=== PATIENT | female | born 1935 | race Caucasian/White ===

== ENCOUNTER → 2016-06-22 | Outpatient (CLI) | payer MEDICARE, OTHER ==
--- NOTE | 2016-06-22 10:57 | MM ---
Reason for exam: history of breast cancer, conservation therapy. Last mammogram was performed 1 year ago. History: Patient is postmenopausal, has history of breast cancer at age 65, and has history of colon cancer at age 51. Malignant lumpectomy, April 01, 2001. Malignant stereotactic core biopsy of the left breast, March 15, 2001. Malignant excisional biopsy, March 15, 2001. Core biopsy of the left breast. Radiation therapy of the left breast. Physical Findings: Nurse Summary: 2cm nodule in the left breast at 4 o'clock (nurse mm). MG 3D Diag Mammo W/Cad JASON Bilateral CC and MLO view(s) were taken. XCCL view(s) were taken of the left breast. Prior study comparison: June 16, 2015, bilateral MG 3d diag mammo w/cad JASON. May 14, 2014, bilateral MG diagnostic mammo w CAD JASON. The breast tissue is heterogeneously dense. This may lower the sensitivity of mammography. Benign calcifications. Stable post lumpectomy distortion upper outer left breast. No significant new findings when compared with previous films. These results were verbally communicated with the patient and result sheet given to the patient on 06/22/16. ASSESSMENT: Benign, BI-RAD 2 RECOMMENDATION: Follow-up diagnostic mammogram of both breasts in 1 year. Manage patient on a clinical basis.
== END | disposition home or self-care (01) ==
LOC: RADMAMWWP 09:24
PROVIDERS: ATTEND Internal Medicine
DX: Z08 Encounter for follow-up examination after completed treatment for malignant neoplasm (principal); Z85.3 Personal history of malignant neoplasm of breast
CPT/HCPCS: G0204; G0279

== ENCOUNTER → 2017-01-03 | Outpatient (CLI) | payer MEDICARE ==
--- NOTE | 2017-01-03 10:39 | MR ---
EXAMINATION TYPE: MR angio head wo con DATE OF EXAM: 01/03/2017 COMPARISON: 04/02/2012 HISTORY: cerebral aneurysm TECHNIQUE: Utilizing 3-D [id number] intracranial MRA of the [place] of [place] was performed. FINDINGS: The vertebrobasilar and carotid systems are patent. There is 2 mm aneurysm extending off the distal c arotid siphon on the right. Left vertebral artery is dominant. IMPRESSION- 1. 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
== END | disposition home or self-care (01) ==
LOC: RADMRIMAIN 09:53
PROVIDERS: ATTEND Internal Medicine
DX: I67.1 Cerebral aneurysm, nonruptured (principal)
CPT/HCPCS: 70544

== ENCOUNTER → 2017-06-25 | Outpatient (CLI) | payer MEDICARE ==
--- NOTE | 2017-06-25 11:27 | MM ---
Reason for exam: additional evaluation requested from prior study. Last mammogram was performed 1 year ago. History: Patient is postmenopausal, has history of breast cancer at age 65, and has history of colon cancer at age 51. Malignant lumpectomy, April 01, 2001. Malignant stereotactic core biopsy of the left breast, March 15, 2001. Malignant excisional biopsy, March 15, 2001. Core biopsy of the left breast. Radiation therapy of the left breast. Physical Findings: Nurse Summary: 1cm nodule in the left breast at 3 o'clock (nurse dw). MG 3D Diag Mammo W/Cad JASON Bilateral CC and MLO view(s) were taken. Prior study comparison: June 22, 2016, bilateral MG 3d diag mammo w/cad JASON. May 14, 2014, bilateral MG diagnostic mammo w CAD JASON. The breast tissue is heterogeneously dense. This may lower the sensitivity of mammography. BB at palpable at lumpectomy site. No significant new findings when compared with previous films. These results were verbally communicated with the patient and result sheet given to the patient on 06/25/17. ASSESSMENT: Benign, BI-RAD 2 RECOMMENDATION: Routine screening mammogram of both breasts in 1 year.
== END | disposition home or self-care (01) ==
LOC: RADMAMWWP 09:59
PROVIDERS: ATTEND Internal Medicine
DX: Z08 Encounter for follow-up examination after completed treatment for malignant neoplasm (principal); Z85.3 Personal history of malignant neoplasm of breast
CPT/HCPCS: 77066; G0279

== ENCOUNTER 2018-07-29 17:44 | Observation (INO) | payer MEDICARE ==
[2018-07-29] MEDS ORDERED: SODIUM CHLORIDE 0.9% 1,000 ML IV STA (18:15)
--- NOTE | 2018-07-29 18:48 | ED ---
Dizziness HPI - General Chief Complaint: Dizziness Stated Complaint: elevated BP Time Seen by Provider: 07/29/18 18:06 Source: patient, family, RN notes reviewed Mode of arrival: ambulatory Limitations: no limitations - History of Present Illness Initial Comments: This 82-year-old female who states she developed 2 episodes of dizzy spells while working on a puzzle with her . She states it last about 1-1/2 minutes each she states she felt kind of woozy and had some visual disturbance no focal weakness which did have some numbness to her fingers. She also notes that her heart rate was elevated. At this time she is asymptomatic denies any fevers chills nausea vomiting sweats. Per her daughter she did have a spike in her blood pressure at that time was 197/83 she appeared to be flushed. Currently she is back to normal other than she states she just feels a little bit off but she can't really describe it. MD Complaint: dizziness - Related Data Home Medications Medication Instructions Recorded Confirmed Allopurinol [Zyloprim] 300 mg PO HS 07/29/18 07/29/18 Enalapril [Vasotec] 5 mg PO HS 07/29/18 07/29/18 Levothyroxine Sodium [Synthroid] 75 mcg PO HS 07/29/18 07/29/18 Spironolactone-Hctz 25-25Mg 1 tab PO HS 07/29/18 07/29/18 [Aldactazide 25-25Mg] metFORMIN HCL [Glucophage] 500 mg PO BID 07/29/18 07/29/18 Allergies Allergy/AdvReac Type Severity Reaction Status Date / Time codeine AdvReac Nausea & Verified 07/29/18 18:56 Vomiting Review of Systems ROS Statement: Those systems with pertinent positive or pertinent negative responses have been documented in the HPI. ROS Other: All systems not noted in ROS Statement are negative. Past Medical History Past Medical History: Diabetes Mellitus, Hypertension, Thyroid Disorder Additional Past Medical History / Comment(s): gout History of Any Multi-Drug Resistant Organisms: None Reported Past Surgical History: Appendectomy, Bowel Resection, Breast Surgery Past Psychological History: No Psychological Hx Reported Smoking Status: Former smoker Past Alcohol Use History: None Reported Past Drug Use History: None Reported General Exam - General Exam Comments Initial Comments: This is a well-developed well-nourished awake alert oriented x 3 female Limitations: no limitations General appearance: alert, in no apparent distress Head exam: Present: atraumatic, normocephalic, normal inspection Eye exam: Present: normal appearance, PERRL, EOMI. Absent: scleral icterus, conjunctival injection, periorbital swelling ENT exam: Present: normal exam, mucous membranes moist Neck exam: Present: normal inspection, full ROM, other (No stridor JVD or bruits ). Absent: tenderness, meningismus, lymphadenopathy Respiratory exam: Present: normal lung sounds bilaterally. Absent: respiratory distress, wheezes, rales, rhonchi, stridor Cardiovascular Exam: Present: regular rate, normal rhythm, normal heart sounds. Absent: systolic murmur, diastolic murmur, rubs, gallop, clicks GI/Abdominal exam: Present: soft, normal bowel sounds. Absent: distended, tenderness, guarding, rebound, rigid, bruit, pulsatile mass Extremities exam: Present: normal inspection, full ROM, normal capillary refill. Absent: tenderness, pedal edema, joint swelling, calf tenderness Back exam: Present: normal inspection Neurological exam: Present: alert, oriented X3, CN II-XII intact Psychiatric exam: Present: normal affect, normal mood Skin exam: Present: warm, dry, intact, normal color. Absent: rash Course Vital Signs 07/29/18 17:46 Temperature 98.1 F Pulse Rate 82 Respiratory 18 Rate Blood Pressure 148/84 O2 Sat by Pulse 98 Oximetry - Reevaluation(s) Reevaluation #1: 07/29/18 22:15 Cardiac monitoring: Cardiac monitoring was indicated due to the patient's presentation for dizziness to rule out dysrhythmia none was noted. EKG showed a normal sinus rhythm a 72 upon my initial encounter. No dysrhythmia no acute ST-T wave changes noted. EKG Findings - EKG Results: EKG: interpreted by ERMGiuliano, sinus rhythm (Sinus rhythm of 71. Interval 188 QRS duration 94 QT since QTC 460/452 moderate voltage criteria for LVH no acute ST- T wave changes some artifact was present) Medical Decision Making - Medical Decision Making I did have a long discussion with patient and family regarding the findings. The patient's episode with tachycardia is suspicious for dysrhythmia. I did discuss the need for admission with the patient family who do agree. I did discuss the case with Dr. Medel. Patient will be admitted with cardiology consultation and echocardiogram and duplex scan will be ordered. Patient is currently asymptomatic. - Lab Data Result diagrams: 07/29/18 18:36 07/29/18 18:36 Lab Results 07/29/18 07/29/18 07/29/18 Range/Units 18:36 18:36 18:36 WBC 8.9 (3.8-10.6) k/uL RBC 4.63 (3.80-5.40) m/uL Hgb 13.4 (11.4-16.0) gm/dL Hct 41.7 (34.0-46.0) % MCV 90.2 (80.0-100.0) fL MCH 28.9 (25.0-35.0) pg MCHC 32.0 (31.0-37.0) g/dL RDW 13.9 (11.5-15.5) % Plt Count 231 (150-450) k/uL Neutrophils % 73 % Lymphocytes % 15 % Monocytes % 5 % Eosinophils % 5 % Basophils % 1 % Neutrophils # 6.5 (1.3-7.7) k/uL Lymphocytes # 1.4 (1.0-4.8) k/uL Monocytes # 0.4 (0-1.0) k/uL Eosinophils # 0.4 (0-0.7) k/uL Basophils # 0.1 (0-0.2) k/uL D-Dimer (<0.60) mg/L FEU Sodium 137 (137-145) mmol/L Potassium 5.2 H (3.5-5.1) mmol/L Chloride 101 (98-107) mmol/L Carbon Dioxide 28 (22-30) mmol/L Anion Gap 8 mmol/L BUN 26 H (7-17) mg/dL Creatinine 0.91 (0.52-1.04) mg/dL Est GFR (CKD-EPI)AfAm 69 (>60 ml/min/1.73 sqM) Est GFR (CKD-EPI)NonAf 60 (>60 ml/min/1.73 sqM) Glucose 99 (74-99) mg/dL Calcium 9.6 (8.4-10.2) mg/dL Magnesium 1.9 (1.6-2.3) mg/dL Total Bilirubin 0.7 (0.2-1.3) mg/dL AST 25 (14-36) U/L ALT 31 (9-52) U/L Alkaline Phosphatase 59 (38-126) U/L Total Creatine Kinase 74 (30-135) U/L CK-MB (CK-2) 0.7 (0.0-2.4) ng/mL CK-MB (CK-2) Rel Index 0.9 Troponin I <0.012 (0.000-0.034) ng/mL Total Protein 6.5 (6.3-8.2) g/dL Albumin 3.9 (3.5-5.0) g/dL Urine Color Urine Appearance (Clear) Urine pH (5.0-8.0) Ur Specific [place] (1.001-1.035) Urine Protein (Negative) Urine Glucose (UA) (Negative) Urine Ketones (Negative) Urine Blood (Negative) Urine Nitrite (Negative) Urine Bilirubin (Negative) Urine Urobilinogen (<2.0) mg/dL Ur Leukocyte Esterase (Negative) Urine WBC (0-5) /hpf Ur Squamous Epith Cells (0-4) /hpf 07/29/18 07/29/18 Range/Units 18:36 19:32 WBC (3.8-10.6) k/uL RBC (3.80-5.40) m/uL Hgb (11.4-16.0) gm/dL Hct (34.0-46.0) % MCV (80.0-100.0) fL MCH (25.0-35.0) pg MCHC (31.0-37.0) g/dL RDW (11.5-15.5) % Plt Count (150-450) k/uL Neutrophils % % Lymphocytes % % Monocytes % % Eosinophils % % Basophils % % Neutrophils # (1.3-7.7) k/uL Lymphocytes # (1.0-4.8) k/uL Monocytes # (0-1.0) k/uL Eosinophils # (0-0.7) k/uL Basophils # (0-0.2) k/uL D-Dimer 0.49 (<0.60) mg/L FEU Sodium (137-145) mmol/L Potassium (3.5-5.1) mmol/L Chloride (98-107) mmol/L Carbon Dioxide (22-30) mmol/L Anion Gap mmol/L BUN (7-17) mg/dL Creatinine (0.52-1.04) mg/dL Est GFR (CKD-EPI)AfAm (>60 ml/min/1.73 sqM) Est GFR (CKD-EPI)NonAf (>60 ml/min/1.73 sqM) Glucose (74-99) mg/dL Calcium (8.4-10.2) mg/dL Magnesium (1.6-2.3) mg/dL Total Bilirubin (0.2-1.3) mg/dL AST (14-36) U/L ALT (9-52) U/L Alkaline Phosphatase (38-126) U/L Total Creatine Kinase (30-135) U/L CK-MB (CK-2) (0.0-2.4) ng/mL CK-MB (CK-2) Rel Index Troponin I (0.000-0.034) ng/mL Total Protein (6.3-8.2) g/dL Albumin (3.5-5.0) g/dL Urine Color Colorless Urine Appearance Clear (Clear) Urine pH 5.0 (5.0-8.0) Ur Specific [place] 1.003 (1.001-1.035) Urine Protein Negative (Negative) Urine Glucose (UA) Negative (Negative) Urine Ketones Trace H (Negative) Urine Blood Negative (Negative) Urine Nitrite Negative (Negative) Urine Bilirubin Negative (Negative) Urine Urobilinogen <2.0 (<2.0) mg/dL Ur Leukocyte Esterase Trace H (Negative) Urine WBC 1 (0-5) /hpf Ur Squamous Epith Cells 2 (0-4) /hpf - Radiology Data Radiology results: report reviewed (I did review the imaging and report no acute findings are seen.), image reviewed Disposition Clinical Impression: Intermittent palpitations, Dizziness Disposition: ADMITTED IP TO THIS [facility] Condition: Stable Referrals: Timothy Medel MD [Primary Care Provider] - 1-2 days
[2018-07-29 18:51] LABS: Basophils # (A) 0.1 k/uL (0-0.2); Basophils % (A) 1 %; Eosinophils # (A) 0.4 k/uL (0-0.7); Eosinophils % (A) 5 %; HCT 41.7 % (34.0-46.0); HGB 13.4 gm/dL (11.4-16.0); Lymphocytes # (A) 1.4 k/uL (1.0-4.8); Lymphocytes % (A) 15 %; MCH 28.9 pg (25.0-35.0); MCV 90.2 fL (80.0-100.0); Monocytes # (A) 0.4 k/uL (0-1.0); Monocytes % (A) 5 %; Neutrophils # (A) 6.5 k/uL (1.3-7.7); Neutrophils % (A) 73 %; Platelet Count 231 k/uL (150-450); RBC 4.63 m/uL (3.80-5.40); RDW 13.9 % (11.5-15.5); WBC 8.9 k/uL (3.8-10.6)
[2018-07-29 19:02] LABS: Albumin 3.9 g/dL (3.5-5.0); Calcium 9.6 mg/dL (8.4-10.2); Magnesium 1.9 mg/dL (1.6-2.3); Potassium 5.2 mmol/L (3.5-5.1); Total Bilirubin 0.7 mg/dL (0.2-1.3); Total Protein 6.5 g/dL (6.3-8.2)
[2018-07-29 19:13] LABS: Creatine Kinase 74 U/L (30-135)
--- NOTE | 2018-07-29 19:18 | CT ---
EXAMINATION TYPE: CT brain wo con DATE OF EXAM: 07/29/2018 HISTORY: Dizziness. CT DLP: 1090.4 mGycm. Automated Exposure Control for Dose Reduction was Utilized. TECHNIQUE: CT scan of the head is performed without contrast. COMPARISON: CT brain April 01, 2012. MRI brain April 02, 2012. FINDINGS: There is no acute intracranial hemorrhage or midline shift identified. Ventricles and sul ci are within normal limits in size for patient's age. Paul-white matter differentiation is preserved . The globes are intact and the visualized sinuses are clear. IMPRESSION: No acute intracranial hemorrhage or midline shift. No significant change from prior CT/M RI.
--- NOTE | 2018-07-29 19:20 | XR ---
EXAMINATION TYPE: XR chest 2V DATE OF EXAM: 07/29/2018 COMPARISON: Chest x-ray April 01, 2012. HISTORY: Cough. TECHNIQUE: Frontal and lateral views of the chest are obtained. FINDINGS: Overlying EKG leads are redemonstrated. There is improved inspiration on current study. Th ere is no focal air space opacity, pleural effusion, or pneumothorax seen. The cardiac silhouette si ze remains within normal limits with atherosclerotic and ectatic thoracic aorta. The osseous struct ures are intact. IMPRESSION: No suspicious acute pulmonary process.
[2018-07-29 19:27] LABS: Creatine Kinase MB 0.7 ng/mL (0.0-2.4); Troponin I <0.012 ng/mL (0.000-0.034)
[2018-07-29 19:41] LABS: Appearance,Urine Clear (Clear); Bilirubin,Urine Negative (Negative); Blood,Urine Negative (Negative); Color,Urine Colorless; Glucose,Urine (UA) Negative (Negative); Ketones,Urine Trace (Negative); Leukocyte Esterase,Urine Trace (Negative); Nitrite,Urine Negative (Negative); Protein,Urine Negative (Negative); Specific Gravity,Urine 1.003 (1.001-1.035); Squamous Epithelial Cell,Urine 2 /hpf (0-4); Urobilinogen,Urine <2.0 mg/dL (<2.0); WBC,Urine 1 /hpf (0-5)
[2018-07-29] MEDS ORDERED: NALOXONE 0.4 MG/ML 1 ML VIAL IV PRN (22:17)
[2018-07-29] MEDS ORDERED: ALLOPURINOL 300 MG TAB PO SCH (23:00)
[2018-07-29] MEDS ORDERED: LEVOTHYROXINE 75 MCG TAB PO SCH (23:00)
[2018-07-29] MEDS ORDERED: LISINOPRIL 5 MG TAB PO SCH (23:00)
[2018-07-29 23:53] VITALS: BMI 38.2
[2018-07-30] MEDS: SODIUM CHLORIDE 0.9% 1,000 ML IV SCH ×2 (01:58→11:35)
[2018-07-30 03:28] VITALS: RESP 18
[2018-07-30 06:40] LABS: Glucose,Whole Blood 92 mg/dL (75-99)
[2018-07-30 07:42] VITALS: TEMP 97.8
[2018-07-30 08:52] LABS: Basophils # (A) 0.1 k/uL (0-0.2); Basophils % (A) 1 %; Eosinophils # (A) 0.4 k/uL (0-0.7); Eosinophils % (A) 6 %; HCT 39.1 % (34.0-46.0); HGB 12.6 gm/dL (11.4-16.0); Lymphocytes # (A) 1.6 k/uL (1.0-4.8); Lymphocytes % (A) 23 %; MCH 29.5 pg (25.0-35.0); MCHC 32.3 g/dL (31.0-37.0); MCV 91.3 fL (80.0-100.0); Mean Platelet Volume 7.6; Monocytes # (A) 0.5 k/uL (0-1.0); Monocytes % (A) 8 %; Neutrophils # (A) 4.2 k/uL (1.3-7.7); Neutrophils % (A) 61 %; Platelet Count 242 k/uL (150-450); RBC 4.28 m/uL (3.80-5.40); WBC 6.9 k/uL (3.8-10.6)
[2018-07-30 08:56] LABS: Albumin 3.2 g/dL (3.5-5.0); Calcium 9.1 mg/dL (8.4-10.2); Magnesium 1.8 mg/dL (1.6-2.3); Potassium 4.8 mmol/L (3.5-5.1); Total Bilirubin 0.4 mg/dL (0.2-1.3); Total Protein 5.3 g/dL (6.3-8.2)
[2018-07-30] MEDS ORDERED: metFORMIN 500 MG TAB PO SCH (09:00)
--- NOTE | 2018-07-30 09:12 | P.CRDCN ---
History of Present Illness History of present illness: This is a pleasant 82-year-old female past medical history significant for hypertension, diabetes mellitus and CVA in the past. She denies history of coronary artery disease, dyslipidemia and has never followed with a dye automation operator for any reason. We have been asked to see her in consultation secondary to palpitations. Yesterday while she was sitting down doing a puzzle with her she started feeling acutely lightheaded like she was going to pass out. She denies room spinning but states that it felt like the lights were getting darker around her. She also felt her heart was racing fast. She states this lasted for approximately a minute and a half in the acute phase of lightheadedness subsided. She denies associated chest pain, shortness of breath, nausea, vomiting or diaphoresis. Her checked her blood pressure immediately thereafter and it was 130s over 90. She continued to feel overall not right and was sitting on the couch resting. Her daughter came over to blood pressure and it was 190/60 so she decided to come to the hospital for further evaluation. Blood pressure on arrival 148/84 heart rate 82. She states she is very compliant with her prescribed medications and has taken on that day. She has had no further episodes of dizziness since admission. Telemetry tracings have been unremarkable for tachy- or diann- arrhythmia. She is seen and examined lying flat resting comfortably in bed in no acute distress with family at the bedside. EKG reveals sinus mechanism with first-degree AV block. Chest x-ray is negative for an acute cardiopulmonary process. CT brain is negative for an acute intracranial hemorrhage or midline shift. Laboratory data reviewed, WBC 6.9, hemoglobin 12.6, platelets 242, d-dimer 0.49 , sodium 141, potassium 4.8, creatinine 0.92, magnesium 1.8, cardiac enzymes negative 3. Current cardiac medications include enalapril 5 mg daily and spironolactone/ HCTZ 25/25 mg at bedtime. At the time of my exam: CONSTITUTIONAL: Denies fever. Denies chills. EYES: Denies blurred vision. Denies vision changes. Denies eye pain. EARS, NOSE, MOUTH & THROAT: Denies headache. Denies sore throat. Denies ear pain. CARDIOVASCULAR: Denies chest pain. Denies shortness of breath. Denies orthopnea. Denies PND. Denies palpitations. RESPIRATORY: Denies cough. GASTROINTESTINAL: Denies abdominal pain. Denies diarrhea. Denies constipation. Denies nausea. Denies vomiting. MUSCULOSKELETAL: Denies myalgias. INTEGUMENTARY: Denies pruitis. Denies rash. NEUROLOGIC: Denies numbness. Denies tingling. Denies weakness. PSYCHIATRIC: Denies anxiety. Denies depression. ENDOCRINE: Denies fatigue. Denies weight change. Denies polydipsia. Denies polyurina. GENITOURINARY: Denies burning, hematuria or urgency with micturation. HEMATOLOGIC: Denies history of anemia. Denies bleeding. Blood pressure 102/65 heart rate 58 afebrile maintaining oxygen saturation on room air GENERAL: This is a 82-year-old female in no apparent distress at the time of my examination. Obese. HEENT: Head is atraumatic, normocephalic. Pupils are equal, round. Sclerae anicteric. Conjunctivae are clear. Mucous membranes of the mouth are moist. Neck is supple. There is no jugular venous distention. No carotid bruit is heard. LUNGS: Clear to auscultation no wheezes, rales or rhonchi. No chest wall tenderness is noted on palpation or with deep breathing. HEART: Regular rate and rhythm without murmurs, rubs or gallops. S1 and S2 heard. ABDOMEN: Soft, nontender. Bowel sounds are heard. No organomegaly noted. EXTREMITIES: No evidence of peripheral edema and no calf tenderness noted. VASCULAR: Radial and dorsalis pedis pulses palpated, no evidence of clubbing. NEUROLOGIC: Patient is awake, alert and oriented x3. ASSESSMENT Presyncope Palpitations Hypertension Diabetes mellitus History of CVA 2012 PLAN An acute coronary event has been ruled out. Echocardiogram has been obtained and will be reviewed. Telemetry tracings unremarkable for arrhythmia. Hemodynamically stable. May be discharged from a cardiac perspective if echocardiogram is normal. Follow up with Dr. Quach in 2 weeks. Thank you kindly for this consultation. Nurse Practitioner note has been reviewed, I agree with a documented findings and plan of care. Patient was seen and examined. 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 History of Any Multi-Drug Resistant Organisms: None Reported Past Surgical History: Appendectomy, Bowel Resection, Breast Surgery Additional Past Surgical History / Comment(s): left breast lumpectomy Additional Past Anesthesia/Blood Transfusion Reaction / Comment(s): problem waking up after knee surgery Past Psychological History: No Psychological Hx Reported Smoking Status: Former smoker Past Alcohol Use History: None Reported Past Drug Use History: None Reported - Past Family History Brother(s) Family Medical History: Diabetes Mellitus Mother Family Medical History: Cancer Additional Family Medical History / Comment(s): passed at 63 - liver cancer Medications and Allergies Home Medications Medication Instructions Recorded Confirmed Type Allopurinol [Zyloprim] 300 mg PO HS 07/29/18 07/29/18 History Enalapril [Vasotec] 5 mg PO HS 07/29/18 07/29/18 History Levothyroxine Sodium [Synthroid] 75 mcg PO HS 07/29/18 07/29/18 History Spironolactone-Hctz 25-25Mg 1 tab PO HS 07/29/18 07/29/18 History [Aldactazide 25-25Mg] metFORMIN HCL [Glucophage] 500 mg PO BID 07/29/18 07/29/18 History Allergies Allergy/AdvReac Type Severity Reaction Status Date / Time codeine AdvReac Nausea & Verified 07/29/18 18:56 Vomiting Physical Exam Vitals: Vital Signs Temp Pulse Pulse Resp BP BP Pulse Ox 07/30/18 07:25 97.8 F 58 L 18 102/65 94 L 07/30/18 03:54 18 07/30/18 03:28 98.5 F 66 18 96/57 95 07/30/18 00:00 97.6 F 94 16 115/75 97 07/29/18 22:25 75 16 111/74 98 07/29/18 17:46 98.1 F 82 18 148/84 98 Intake and Output 07/29/18 07/30/18 07/30/18 22:59 06:59 14:59 Other: Voiding Method Toilet # Voids 2 Weight 104.326 kg Results 07/29/18 18:36 07/29/18 18:36 Cardiac Enzymes 07/29/18 07/29/18 07/30/18 Range/Units 18:36 18:36 00:37 AST 25 (14-36) U/L CK-MB (CK-2) 0.7 (0.0-2.4) ng/mL Troponin I <0.012 <0.012 (0.000-0.034) ng/mL CBC 07/29/18 Range/Units 18:36 WBC 8.9 (3.8-10.6) k/uL RBC 4.63 (3.80-5.40) m/uL Hgb 13.4 (11.4-16.0) gm/dL Hct 41.7 (34.0-46.0) % Plt Count 231 (150-450) k/uL Comprehensive Metabolic Panel 07/29/18 Range/Units 18:36 Sodium 137 (137-145) mmol/L Potassium 5.2 H (3.5-5.1) mmol/L Chloride 101 (98-107) mmol/L Carbon Dioxide 28 (22-30) mmol/L BUN 26 H (7-17) mg/dL Creatinine 0.91 (0.52-1.04) mg/dL Glucose 99 (74-99) mg/dL Calcium 9.6 (8.4-10.2) mg/dL AST 25 (14-36) U/L ALT 31 (9-52) U/L Alkaline Phosphatase 59 (38-126) U/L Total Protein 6.5 (6.3-8.2) g/dL Albumin 3.9 (3.5-5.0) g/dL Current Medications Generic Name Dose Route Start Last Admin Trade Name Freq PRN Reason Stop Dose Admin Allopurinol 300 mg 07/29/18 23:00 07/30/18 00:01 Zyloprim PO 300 mg HS STACIE Administration HCTZ/Spironolactone 1 each 07/30/18 21:00 Aldactazide 25-25mg PO HS STACIE Sodium Chloride 1,000 mls @ 80 mls/hr 07/29/18 22:30 07/30/18 01:58 Saline 0.9% IV Not Given .[id number] STACIE Levothyroxine Sodium 75 mcg 07/29/18 23:00 07/29/18 23:11 Synthroid PO Not Given HS STACIE Lisinopril 5 mg 07/29/18 23:00 07/29/18 23:11 Zestril PO 5 mg HS STACIE Administration Metformin HCl 500 mg 07/30/18 09:00 Glucophage PO BID STACIE Naloxone HCl 0.2 mg 07/29/18 22:17 Narcan IV Q2M PRN Opioid Reversal Intake and Output 07/29/18 07/30/18 07/30/18 22:59 06:59 14:59 Other: Voiding Method Toilet # Voids 2 Weight 104.326 kg 07/29/18 18:36 07/29/18 18:36
--- NOTE | 2018-07-30 10:14 | P.HPIM ---
History of Present Illness H&P Date: 07/30/18 Chief Complaint: Dizziness This is a 82-year-old female with a known past medical history of diabetes mellitus type 2, hypertension and hypothyroidism. Patient presents to the emergency room with complaints of dizziness. Patient reports she was working on a puzzle when she became dizzy. She was sitting at the time. She had some narrowing in her vision. Fingertips became numb in both hands. Patient reports that symptoms lasted for about a minute. She did feel that her heart was racing at the time. She was checking her blood pressures. Initial blood pressure was 130s over 80s. blood pressure did become elevated 197/83 and patient and family decided to come into the hospital for further evaluation. Blood pressure on arrival was 148/84 heart rate 82. Patient has had no further episodes of dizziness since admission. Computed tomography scan of the brain was negative chest x-ray negative. EKG sinus rhythm with marked sinus arrhythmia. Telemetry has been unremarkable for any arrhythmia. Troponins were negative 3 d-dimer normal blood sugar 99. She had some mild dehydration with a BUN of 26 creatinine normal at 0.91 potassium elevated at 5.2 she is on Aldactazide at home. Patient has been seen evaluated by cardiology they have ordered an echo and carotid Doppler. Patient denies any fever, chills, sweats, nausea or vomiting, diarrhea or constipation, any burning with urination. Denies any cough, sore throat. Patient does report yesterday that she drank about 3 cups of coffee and a cup of tea throughout the morning. She feels that she may have not drink enough water. Patient denies any loss of consciousness Review of Systems Please refer to HPI otherwise unremarkable Past Medical History Past Medical History: Cancer, CVA/TIA, Diabetes Mellitus, Hypertension, Thyroid Disorder Additional Past Medical History / Comment(s): gout, left breast ca, colon ca, 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, DVT in 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 control History of Any Multi-Drug Resistant Organisms: None Reported Past Surgical History: Appendectomy, Bowel Resection, Breast Surgery Additional Past Surgical History / Comment(s): left breast lumpectomy Additional Past Anesthesia/Blood Transfusion Reaction / Comment(s): problem waking up after knee surgery Past Psychological History: No Psychological Hx Reported Smoking Status: Former smoker Past Alcohol Use History: None Reported Past Drug Use History: None Reported - Past Family History Brother(s) Family Medical History: Diabetes Mellitus Mother Family Medical History: Cancer Additional Family Medical History / Comment(s): passed at 63 - liver cancer Medications and Allergies Home Medications Medication Instructions Recorded Confirmed Type Allopurinol [Zyloprim] 300 mg PO HS 07/29/18 07/29/18 History Enalapril [Vasotec] 5 mg PO HS 07/29/18 07/29/18 History Levothyroxine Sodium [Synthroid] 75 mcg PO HS 07/29/18 07/29/18 History Spironolactone-Hctz 25-25Mg 1 tab PO HS 07/29/18 07/29/18 History [Aldactazide 25-25Mg] metFORMIN HCL [Glucophage] 500 mg PO BID 07/29/18 07/29/18 History Allergies Allergy/AdvReac Type Severity Reaction Status Date / Time codeine AdvReac Nausea & Verified 07/29/18 18:56 Vomiting Physical Exam Vitals: Vital Signs Temp Pulse Pulse Resp BP BP Pulse Ox 07/30/18 08:00 58 L 18 07/30/18 07:25 97.8 F 58 L 18 102/65 94 L 07/30/18 03:54 18 07/30/18 03:28 98.5 F 66 18 96/57 95 07/30/18 00:00 97.6 F 94 16 115/75 97 07/29/18 22:25 75 16 111/74 98 07/29/18 17:46 98.1 F 82 18 148/84 98 Intake and Output 07/29/18 07/30/18 07/30/18 22:59 06:59 14:59 Other: Voiding Method Toilet Toilet # Voids 2 Weight 104.326 kg Head normocephalic Neck supple Lungs clear to auscultation bilaterally no wheezing or crackles Heart regular rate and rhythm S1-S2, no rub or gallop Abdomen is soft nontender nondistended positive bowel sounds no hepatosplenomegaly Extremities no edema Neuro alert and orientated to 3. Hand district sales coordinator and lower extremity strength equal bilaterally. No facial droop or slurred speech. Results CBC & Chem 7: 07/30/18 07:09 07/30/18 07:09 Labs: Abnormal Lab Results - Last 24 Hours (Table) 07/29/18 07/29/18 07/30/18 Range/Units 18:36 19:32 07:09 Potassium 5.2 H (3.5-5.1) mmol/L Chloride 108 H (98-107) mmol/L BUN 26 H 25 H (7-17) mg/dL Total Protein 5.3 L (6.3-8.2) g/dL Albumin 3.2 L (3.5-5.0) g/dL Urine Ketones Trace H (Negative) Ur Leukocyte Esterase Trace H (Negative) Thrombosis Risk Factor Assmnt - Choose All That Apply Each Factor Represents 1 point: Obesity (BMI >25) Each Risk Factor Represents 3 Points: Age 75 years or older Thrombosis Risk Factor Assessment Total Risk Factor Score: 4 Thrombosis Risk Factor Assessment Level: Moderate Risk Assessment and Plan Assessment: 1. Dizziness: Patient admitted to the observation floor. Continue telemetry monitoring for any arrhythmia. EKG had shown sinus rhythm with marked sinus arrhythmia. Computed tomography scan of the brain negative chest x-ray negative. Troponins are negative 3. Acute coronary event has been ruled out. Cardiology consulted they've ordered an echo and carotid Doppler. Awaiting orthostatic blood pressures. 2. Mild dehydration with elevated BUN of 26 continue with IV fluids. Dehydration could be contributing factor to patient's dizziness. We will monit or. 3. Hyperkalemia potassium 5.2 down to 4.8 on repeat blood draw this morning 4. Hypomagnesemia magnesium 1.8 we'll give 1 g of magnesium sulfate 5. Diabetes mellitus type 2 check hemoglobin A1c continue metformin and sliding scale coverage 6. Essential hypertension 7. History of CVA 8. Hypothyroidism: Continue Synthroid. TSH normal at 2.070 GI prophylaxis Pepcid and DVT prophylaxis subcu heparin Time with Patient: Greater than 30 (Greater than 50% of the total time spent in counseling and coordination of care.I performed an examination of the patient a nd discussed their management with the physician Community Health Program Coordinator. I have reviewed the Physician Community Health Program Coordinator's notes and agree with the documented findings and plan of care)
[2018-07-30] MEDS ORDERED: MAGNESIUM SULFATE-D5W PMX 1 GM in DEXTROSE/WATER 1 100ML.BAG IVPB ONE (11:00)
--- NOTE | 2018-07-30 11:15 | US ---
EXAMINATION TYPE: US carotid duplex BILAT DATE OF EXAM: 07/29/2018 COMPARISON: CLINICAL HISTORY: Dizziness. syncope yesterday, stroke 2011, HTN controlled with meds EXAM MEASUREMENTS: RIGHT: Peak Systolic Velocity (PSV) cm/sec ----- Right CCA: 61.6 ----- Right ICA: 61.0 ----- Right ECA: 95.6 ICA/CCA ratio: 1.0 RIGHT: End Diastole cm/sec ----- Right CCA: 23.2 ----- Right ICA: 17.4 ----- Right ECA: 95.6 LEFT: Peak Systolic Velocity (PSV) cm/sec ----- Left CCA: 78.2 ----- Left ICA: 50.5 ----- Left ECA: 93.3 ICA/CCA ratio: 0.6 LEFT: End Diastole cm/sec ----- Left CCA: 21.5 ----- Left ICA: 20.0 ----- Left ECA: 16.4 VERTEBRALS (direction of flow): Right Vertebral: Antegrade Left Vertebral: Antegrade Rhythm: Arrhythmia No significant stenosis, elevated velocities or wall thickening. Plaque seen in anterior left bulb c reating shadow. Grayscale, color Doppler, spectral Doppler imaging performed of the carotid arteries. Waveform analys is does not show significant stenosis of the proximal internal carotid arteries. IMPRESSION: No hemodynamic significant stenosis of the proximal internal carotid arteries by Doppler criteria, an indirect measurement of carotid stenosis
--- NOTE | 2018-07-30 11:51 | ECHOF ---
Referral Reason:Palpitations MEASUREMENTS -------- HEIGHT: 165.1 cm WEIGHT: 104.3 kg BP: 115/75 RVIDd: 3.2 cm (< 3.3) IVSd: 1.2 cm (0.6 - 1.1) LVIDd: 4.2 cm (3.9 - 5.3) LVPWd: 1.1 cm (0.6 - 1.1) IVSs: 1.7 cm LVIDs: 2.2 cm LVPWs: 1.7 cm LAESV Index (A-L): 21.06 ml/m Ao Diam: 3.4 cm (2.0 - 3.7) AV Cusp: 1.9 cm (1.5 - 2.6) LA Diam: 2.7 cm (2.7 - 3.8) MV EXCURSION: 14.924 mm (> 18.000) MV EF SLOPE: 99 mm/s (70 - 150) EPSS: 0.3 cm MV E Luis: 0.75 m/s MV DecT: 283 ms MV A Luis: 0.82 m/s MV E/A Ratio: 0.91 RAP: 5.00 mmHg RVSP: 18.24 mmHg FINDINGS -------- Sinus rhythm. This was a technically good study. The left ventricular size is normal. There is borderline concentric left ventricular hypertrophy. Overall left ventricular systolic function is normal with, an EF between 55 - 60 %. The right ventricle is normal in size. Normal LA size by volume 22+/-6 ml/m2. The right atrium is normal in size. There is mild aortic valve sclerosis. The mitral valve leaflets are mildly thickened. Mild mitral regurgitation is present. Trace tricuspid regurgitation present. There is no evidence of pulmonary hypertension. The right ventricular systolic pressure, as measured by Doppler, is 18.24mmHg. There is no pulmonic regurgitation present. The aortic root size is normal. IVC Not well visulized. There is no pericardial effusion. CONCLUSIONS -------- 1. Sinus rhythm. 2. This was a technically good study. 3. The left ventricular size is normal. 4. There is borderline concentric left ventricular hypertrophy. 5. Overall left ventricular systolic function is normal with, an EF between 55 - 60 %. 6. Normal LA size by volume 22+/-6 ml/m2. 7. There is mild aortic valve sclerosis. 8. The mitral valve leaflets are mildly thickened. 9. Mild mitral regurgitation is present. 10. Trace tricuspid regurgitation present. 11. There is no evidence of pulmonary hypertension. 12. The aortic root size is normal. 13. IVC Not well visulized. 14. There is no pericardial effusion. DENTAL TREATMENT COORDINATOR: Martha Naik RDCS
[2018-07-30 11:54] LABS: Glucose,Whole Blood 104 mg/dL (75-99)
[2018-07-30 12:24] VITALS: BP 111/75; PULSE 66
[2018-07-30] MEDS ORDERED: INSULIN ASPART (NovoLOG) 100 UNIT/ML VIAL SQ SCH (12:30)
--- NOTE | 2018-07-30 13:29 | P.DS ---
Providers Date of admission: 07/29/18 22:18 Expected date of discharge: 07/30/18 Attending physician: Timothy Medel Consults: 07/29/18 22:19 Consult Physician Routine Consulting Provider: Wilfredo Quach Consult Reason/Comments: Palpitations Do you want consulting provider notified?: Yes, Notify in am Primary care physician: Timothy Gianfranco [facility] Hospital Course: Discharge diagnosis 1. Dizziness: Likely secondary to dehydration. EKG had shown sinus rhythm with marked sinus arrhythmia. Computed tomography scan of the brain negative chest x-ray negative. Troponins are negative 3. Acute coronary event has been ruled out. Orthostatic blood pressures negative. Echo shows an EF of 55-60% and mild mitral regurgitation. Carotid Doppler was negative for any significant hemodynamic stenosis. No evidence of any arrhythmias on telemetry. Cardiology has cleared patient for discharge 2. Mild dehydration with elevated BUN of 26 continue with IV fluids. Dehydration could be contributing factor to patient's dizziness. We will monitor. 3. Hyperkalemia potassium 5.2 down to 4.8 on repeat blood draw this morning 4. Hypomagnesemia magnesium 1.8 we'll give 1 g of magnesium sulfate 5. Diabetes mellitus type 2 check hemoglobin A1c continue metformin . No episodes of hypoglycemia 6. Essential hypertension 7. History of CVA 8. Hypothyroidism: Continue Synthroid. TSH normal at 2.070 Hospital course This is a 82-year-old female with a known past medical history of diabetes mellitus type 2, hypertension and hypothyroidism. Patient presents to the emergency room with complaints of dizziness. Patient reports she was working on a puzzle when she became dizzy. She was sitting at the time. She had some narrowing in her vision. Fingertips became numb in both hands. Patient reports that symptoms lasted for about a minute. She did feel that her heart was racing at the time. She was checking her blood pressures. Initial blood pressure was 130s over 80s. blood pressure did become elevated 197/83 and patient and family decided to come into the hospital for further evaluation. Blood pressure on arrival was 148/84 heart rate 82. Patient has had no further episodes of dizziness since admission. Computed tomography scan of the brain was negative chest x-ray negative. EKG sinus rhythm with marked sinus arrhythmia. Telemetry has been unremarkable for any arrhythmia. Troponins were negative 3 d-dimer normal blood sugar 99. She had some mild dehydration with a BUN of 26 creatinine normal at 0.91 potassium elevated at 5.2 she is on Aldactazide at home. Patient has been seen evaluated by cardiology they have ordered an echo and carotid Doppler. Patient denies any fever, chills, sweats, nausea or vomiting, diarrhea or constipation, any burning with urination. Denies any cough, sore throat. Patient does report yesterday that she drank about 3 cups of coffee and a cup of tea throughout the morning. She feels that she may have not drink enough water. Patient denies any loss of consciousness 07/30/2018 patient is medically stable for discharge. Dizziness has resolved. Discussed importance that patient drinks water throughout the day. Patient reports that she is not drinking enough water. Also discontinue the Aldactazide. Patient does state that she has not taken the Aldactazide in about 3 weeks. She only takes it when she has swelling in her legs. At this time Aldactazide has been discontinued and will have patient follow up with Dr. Medel in 3 days. Recommend repeating BMP and magnesium level in 3 days. Patient cleared by cardiology. She has been up and ambulating without any dizziness. Patient is stable for discharge. Please refer to chart for any further details. I performed an examination of the patient and discussed their management with the physician Casing Grader. I have reviewed the Physician Casing Grader's notes and agree with the documented findings and plan of care Patient Condition at Discharge: Stable Plan - Discharge Summary New Discharge Prescriptions: Continue metFORMIN HCL [Glucophage] 500 mg PO BID Levothyroxine Sodium [Synthroid] 75 mcg PO HS Enalapril [Vasotec] 5 mg PO HS Allopurinol [Zyloprim] 300 mg PO HS Discontinued Spironolactone-Hctz 25-25Mg [Aldactazide 25-25Mg] 1 tab PO HS Discharge Medication List Allopurinol [Zyloprim] 300 mg PO HS 07/29/18 [History] Enalapril [Vasotec] 5 mg PO HS 07/29/18 [History] Levothyroxine Sodium [Synthroid] 75 mcg PO HS 07/29/18 [History] metFORMIN HCL [Glucophage] 500 mg PO BID 07/29/18 [History] Follow up Appointment(s)/Referral(s): Wilfredo Quach MD [STAFF PHYSICIAN] - 2 Weeks Timothy Medel MD [Primary Care Provider] - 3 Days Activity/Diet/Wound Care/Special Instructions: Diet: cardiac, diabetic Activity: as tolerated Discharge Disposition: HOME SELF-CARE
[2018-07-30 19:35] LABS: Hemoglobin A1C 5.6 % (4.0-6.0)
[2018-07-30] MEDS ORDERED: HEPARIN SODIUM,PORCINE 5,000 UNIT/ML 1 ML VIAL SQ SCH (21:00)
[2018-07-30] MEDS ORDERED: SPIRONOLACTONE-HCTZ 25-25MG 1 EACH TAB PO SCH (21:00)
[2018-07-31] MEDS ORDERED: FAMOTIDINE 20 MG TAB PO SCH (09:00)
== END 2018-07-30 14:02 | disposition home or self-care (01) ==
LOC: EC 17:44 → 1SOBS 22:18
PROVIDERS: ADMIT Internal Medicine; ATTEND Internal Medicine
DX: R42 Dizziness and giddiness (principal); E86.0 Dehydration; E87.5 Hyperkalemia; E83.42 Hypomagnesemia; R00.2 Palpitations; I10 Essential (primary) hypertension; R00.0 Tachycardia, unspecified; E11.9 Type 2 diabetes mellitus without complications; E07.9 Disorder of thyroid, unspecified; M10.9 Gout, unspecified; I44.0 Atrioventricular block, first degree; H53.9 Unspecified visual disturbance; R55 Syncope and collapse; E03.9 Hypothyroidism, unspecified; E66.9 Obesity, unspecified; Z68.38 Body mass index [BMI] 38.0-38.9, adult; R79.89 Other specified abnormal findings of blood chemistry; I34.0 Nonrheumatic mitral (valve) insufficiency; Z85.3 Personal history of malignant neoplasm of breast; Z79.890 Hormone replacement therapy; Z79.84 Long term (current) use of oral hypoglycemic drugs; Z79.899 Other long term (current) drug therapy; Z88.5 Allergy status to narcotic agent; Z90.49 Acquired absence of other specified parts of digestive tract; Z87.891 Personal history of nicotine dependence; Z86.73 Personal history of transient ischemic attack (TIA), and cerebral infarction without residual deficits; Z85.038 Personal history of other malignant neoplasm of large intestine; Z86.718 Personal history of other venous thrombosis and embolism; Z83.3 Family history of diabetes mellitus; Z80.0 Family history of malignant neoplasm of digestive organs
CPT/HCPCS: 96365; 96361; 99285; 36415; 93005; 93306; 85379; 80053 ×2; 84443; 82550; 82553; 83735 ×2; 84484 ×2; 85025 ×2; 81001; 83036; 71046; 93880; 70450; G0378 ×2; J3475

== ENCOUNTER → 2018-08-26 | Outpatient (CLI) | payer MEDICARE ==
--- NOTE | 2018-08-28 09:03 | MM ---
Reason for exam: screening (asymptomatic). Last mammogram was performed 1 year and 2 months ago. History: Patient is postmenopausal, has history of breast cancer at age 65, and has history of colon cancer at age 51. Malignant lumpectomy, April 01, 2001. Malignant stereotactic core biopsy of the left breast, March 15, 2001. Malignant excisional biopsy, March 15, 2001. Core biopsy of the left breast. Radiation therapy of the left breast. Physical Findings: A clinical breast exam by your physician is recommended on an annual basis and results should be correlated with mammographic findings. MG 3D Screening Mammo W/Cad Bilateral CC and MLO view(s) were taken. Prior study comparison: June 25, 2017, bilateral MG 3d diag mammo w/cad [facility]. June 22, 2016, bilateral MG 3d diag mammo w/cad [facility]. There are scattered fibroglandular densities. Post surgical and post therapy changes left breast. Scattered secretory and vascular calcifications. No significant changes when compared with prior studies. ASSESSMENT: Benign, BI-RAD 2 RECOMMENDATION: Routine screening mammogram of both breasts in 1 year.
== END | disposition home or self-care (01) ==
LOC: RADMAMWWP 09:59
PROVIDERS: ATTEND Internal Medicine
DX: Z12.31 Encounter for screening mammogram for malignant neoplasm of breast (principal)
CPT/HCPCS: 77063; 77067

== ENCOUNTER → 2019-11-06 | Outpatient (CLI) | payer MEDICARE ==
--- NOTE | 2019-11-11 11:05 | MM ---
Reason for exam: screening (asymptomatic). Last mammogram was performed 1 year and 2 months ago. History: Patient is postmenopausal, has history of breast cancer at age 65, and has history of colon cancer at age 51. Malignant lumpectomy, April 01, 2001. Malignant stereotactic core biopsy of the left breast, March 15, 2001. Malignant excisional biopsy, March 15, 2001. Core biopsy of the left breast. Radiation therapy of the left breast. Physical Findings: A clinical breast exam by your physician is recommended on an annual basis and results should be correlated with mammographic findings. MG 3D Screening Mammo W/Cad Bilateral CC and MLO view(s) were taken. XCCL view(s) were taken of the right breast. Prior study comparison: August 26, 2018, bilateral MG 3d screening mammo w/cad. June 25, 2017, bilateral MG 3d diag mammo w/cad JASON. The breast tissue is heterogeneously dense. This may lower the sensitivity of mammography. Post surgical and post therapy changes left breast with vascular and fat necrosis calcifications. Secretory calcification on both sides. Prominent node at the right axilla is stable. No significant changes when compared with prior studies. ASSESSMENT: Benign, BI-RAD 2 RECOMMENDATION: Routine screening mammogram of both breasts in 1 year.
== END | disposition home or self-care (01) ==
LOC: RADMAMWWP 13:29
PROVIDERS: ATTEND Internal Medicine
DX: Z12.31 Encounter for screening mammogram for malignant neoplasm of breast (principal)
CPT/HCPCS: 77063; 77067

== ENCOUNTER → 2020-11-08 | Outpatient (CLI) | payer MEDICARE ==
--- NOTE | 2020-11-10 14:56 | MM ---
Reason for exam: screening (asymptomatic). Last mammogram was performed 1 year ago. History: Patient is postmenopausal, has history of breast cancer at age 65, and has history of colon cancer at age 51. Malignant lumpectomy, April 01, 2001. Malignant stereotactic core biopsy of the left breast, March 15, 2001. Malignant excisional biopsy, March 15, 2001. Core biopsy of the left breast. Radiation therapy of the left breast. Physical Findings: A clinical breast exam by your physician is recommended on an annual basis and results should be correlated with mammographic findings. MG 3D Screening Mammo W/Cad Bilateral CC and MLO view(s) were taken. Prior study comparison: November 06, 2019, bilateral MG 3d screening mammo w/cad. August 26, 2018, bilateral MG 3d screening mammo w/cad. There are scattered fibroglandular densities. No significant changes when compared with prior studies. ASSESSMENT: Benign, BI-RAD 2 RECOMMENDATION: Routine screening mammogram of both breasts in 1 year.
== END | disposition home or self-care (01) ==
LOC: RADMAMWWP 14:27
PROVIDERS: ATTEND Internal Medicine
DX: Z12.31 Encounter for screening mammogram for malignant neoplasm of breast (principal); Z78.0 Asymptomatic menopausal state; Z85.3 Personal history of malignant neoplasm of breast
CPT/HCPCS: 77063; 77067

== ENCOUNTER → 2021-11-09 | Outpatient (CLI) | payer MEDICARE ==
--- NOTE | 2021-11-11 07:32 | MM ---
Reason for Exam: Screening (asymptomatic). Last screening mammogram was performed 12 month(s) ago. Patient History: Menarche at age 14. First Full-Term at age 21. Postmenopausal. Patient has history of breast feeding. Breast cancer, age 65. Colorectal cancer, age 51. Previous chest radiation therapy. Core Biopsy on the Left side. 03/15/2001, Malignant Stereotactic Core Biopsy on the left side. Malignant Excisional Biopsy. Malignant Lumpectomy. Radiation Therapy, left. Prior Study Comparison: 08/26/2018 Bilateral Screening Mammogram, [facility]. 11/06/2019 Bilateral Screening Mammogram, [facility]. 11/08/2020 Bilateral Screening Mammogram, [facility]. Tissue Density: The breast tissue is heterogeneously dense. This may lower the sensitivity of mammography. Findings: Analyzed By CAD. Enlarging 8 mm nodule inner upper right breast 12 cm from the nipple requires further evaluation. Distortion left breast related to prior lumpectomy. Benign-appearing and stable calcifications seen bilaterally. Overall Assessment: Incomplete: need additional imaging evaluation, BI-RAD 0 Management: Diagnostic Mammogram of the right breast. A clinical breast exam by your physician is recommended on an annual basis and results should be correlated with mammographic findings. Electronically signed and approved by: Christopher Zepeda M.D. Radiologis
== END | disposition home or self-care (01) ==
LOC: RADMAMWWP 13:13
PROVIDERS: ATTEND Internal Medicine
DX: Z12.31 Encounter for screening mammogram for malignant neoplasm of breast (principal); Z78.0 Asymptomatic menopausal state
CPT/HCPCS: 77063; 77067

== ENCOUNTER → 2021-11-21 | Outpatient (CLI) | payer MEDICARE ==
--- NOTE | 2021-11-21 12:16 | USB ---
Reason for Exam: Additional evaluation requested from abnormal screening. Last screening mammogram was performed less than 1 month ago. Patient History: Menarche at age 14. First Full-Term at age 21. Postmenopausal. Patient has history of breast feeding. Breast cancer, left, age 65. Colorectal cancer, age 51. Previous chest radiation therapy. Core Biopsy on the Left side. 03/15/2001, Malignant Stereotactic Core Biopsy on the left side. Malignant Excisional Biopsy. Malignant Lumpectomy. Radiation Therapy, left. Prior Study Comparison: 08/19/1996 Screening Mammogram, Unknown. 02/11/1997 Left Special View Mammogram, [facility]. 08/31/1997 Bilateral Diagnostic Mammogram, [facility]. 09/28/1998 Bilateral Special View Mammogram, [facility]. 02/02/2000 Bilateral Screening Mammogram, [facility]. 08/06/2000 Right Special View Mammogram, [facility]. 02/12/2001 Bilateral Screening Mammogram, [facility]. 03/01/2001 Left Special View Mammogram, [facility]. 12/27/2001 Left Diagnostic Mammogram, [facility]. 07/02/2002 Bilateral Diagnostic Mammogram, [facility]. 01/15/2003 Left Special View Mammogram, [facility]. 02/06/2003 Left Special View Mammogram, [facility]. 09/10/2003 Bilateral Diagnostic Mammogram, [facility]. 04/28/2004 Left Diagnostic Mammogram, [facility]. 10/31/2004 Bilateral Screening Mammogram, [facility]. 11/04/2004 Right Special View Mammogram, [facility]. 05/08/2005 Bilateral Diagnostic Mammogram, [facility]. 05/10/2006 Bilateral Diagnostic Mammogram, [facility]. 06/25/2007 Bilateral Diagnostic Mammogram, [facility]. 04/08/2008 Bilateral Diagnostic Mammogram, [facility]. 04/08/2008 Right Diagnostic Ultrasound, [facility]. 04/19/2009 Bilateral Diagnostic Mammogram, [facility]. 04/19/2009 Right Diagnostic Ultrasound, [facility]. 04/27/2010 Bilateral Diagnostic Mammogram, [facility]. 05/02/2011 Bilateral Diagnostic Mammogram, [facility]. 01/02/2012 Left Diagnostic Mammogram, [facility]. 01/02/2012 Left Diagnostic Ultrasound, [facility]. 05/08/2012 Bilateral Diagnostic Mammogram, [facility]. 05/01/2013 Left Diagnostic Ultrasound, [facility]. 05/13/2013 Bilateral Diagnostic Mammogram, [facility]. 05/14/2014 Bilateral Diagnostic Mammogram, [facility]. 06/16/2015 Bilateral Diagnostic Mammogram, [facility]. 06/16/2015 Left Diagnostic Ultrasound, [facility]. 06/22/2016 Bilateral Diagnostic Mammogram, [facility]. 06/25/2017 Bilateral Diagnostic Mammogram, [facility]. 08/26/2018 Bilateral Screening Mammogram, [facility]. 11/06/2019 Bilateral Screening Mammogram, [facility]. 11/08/2020 Bilateral Screening Mammogram, [facility]. 11/09/2021 Bilateral MG 3D screening mammo w/cad, [facility]. Tissue Density: Right: There are scattered fibroglandular densities. Findings: Analyzed By CAD. Mammogram There is a focal nodular density with indistinct margins in the inner upper aspect right breast posterior position. Some microlobulation may be present. This is estimated at 0.7 cm on the current exam and 10 cm from the nipple.. Findings: Under real-time sector linear array sonography there is an irregular 0.9 x 0.6 x 0.7 cm hypoechoic lesion with irregular margins. This should be considered suspicious. Ultrasound-guided core biopsy is recommended. Overall Assessment: Suspicious, BI-RAD 4 Assessment: MG 3D work up w/cad RT - Right: Incomplete: need additional imaging evaluation, BI-RAD 0. US breast workup limited RT - Right: Suspicious, BI-RAD 4. Management: Ultrasound Core Biopsy of the right breast. A clinical breast exam by your physician is recommended on an annual basis and results should be correlated with mammographic findings. Results were given to the patient verbally at the time of exam. Electronically signed and approved by: Surya Rahman D.O. Radiologis
--- NOTE | 2021-11-21 12:16 | MM ---
Reason for Exam: Additional evaluation requested from abnormal screening. Last screening mammogram was performed less than 1 month ago. Patient History: Menarche at age 14. First Full-Term at age 21. Postmenopausal. Patient has history of breast feeding. Breast cancer, left, age 65. Colorectal cancer, age 51. Previous chest radiation therapy. Core Biopsy on the Left side. 03/15/2001, Malignant Stereotactic Core Biopsy on the left side. Malignant Excisional Biopsy. Malignant Lumpectomy. Radiation Therapy, left. Prior Study Comparison: 08/19/1996 Screening Mammogram, Unknown. 02/11/1997 Left Special View Mammogram, [facility]. 08/31/1997 Bilateral Diagnostic Mammogram, [facility]. 09/28/1998 Bilateral Special View Mammogram, [facility]. 02/02/2000 Bilateral Screening Mammogram, [facility]. 08/06/2000 Right Special View Mammogram, [facility]. 02/12/2001 Bilateral Screening Mammogram, [facility]. 03/01/2001 Left Special View Mammogram, [facility]. 12/27/2001 Left Diagnostic Mammogram, [facility]. 07/02/2002 Bilateral Diagnostic Mammogram, [facility]. 01/15/2003 Left Special View Mammogram, [facility]. 02/06/2003 Left Special View Mammogram, [facility]. 09/10/2003 Bilateral Diagnostic Mammogram, [facility]. 04/28/2004 Left Diagnostic Mammogram, [facility]. 10/31/2004 Bilateral Screening Mammogram, [facility]. 11/04/2004 Right Special View Mammogram, [facility]. 05/08/2005 Bilateral Diagnostic Mammogram, [facility]. 05/10/2006 Bilateral Diagnostic Mammogram, [facility]. 06/25/2007 Bilateral Diagnostic Mammogram, [facility]. 04/08/2008 Bilateral Diagnostic Mammogram, [facility]. 04/08/2008 Right Diagnostic Ultrasound, [facility]. 04/19/2009 Bilateral Diagnostic Mammogram, [facility]. 04/19/2009 Right Diagnostic Ultrasound, [facility]. 04/27/2010 Bilateral Diagnostic Mammogram, [facility]. 05/02/2011 Bilateral Diagnostic Mammogram, [facility]. 01/02/2012 Left Diagnostic Mammogram, [facility]. 01/02/2012 Left Diagnostic Ultrasound, [facility]. 05/08/2012 Bilateral Diagnostic Mammogram, [facility]. 05/01/2013 Left Diagnostic Ultrasound, [facility]. 05/13/2013 Bilateral Diagnostic Mammogram, [facility]. 05/14/2014 Bilateral Diagnostic Mammogram, [facility]. 06/16/2015 Bilateral Diagnostic Mammogram, [facility]. 06/16/2015 Left Diagnostic Ultrasound, [facility]. 06/22/2016 Bilateral Diagnostic Mammogram, [facility]. 06/25/2017 Bilateral Diagnostic Mammogram, [facility]. 08/26/2018 Bilateral Screening Mammogram, [facility]. 11/06/2019 Bilateral Screening Mammogram, [facility]. 11/08/2020 Bilateral Screening Mammogram, [facility]. 11/09/2021 Bilateral MG 3D screening mammo w/cad, [facility]. Tissue Density: Right: There are scattered fibroglandular densities. Findings: Analyzed By CAD. Mammogram There is a focal nodular density with indistinct margins in the inner upper aspect right breast posterior position. Some microlobulation may be present. This is estimated at 0.7 cm on the current exam and 10 cm from the nipple.. Findings: Under real-time sector linear array sonography there is an irregular 0.9 x 0.6 x 0.7 cm hypoechoic lesion with irregular margins. This should be considered suspicious. Ultrasound-guided core biopsy is recommended. Overall Assessment: Suspicious, BI-RAD 4 Assessment: MG 3D work up w/cad RT - Right: Incomplete: need additional imaging evaluation, BI-RAD 0. US breast workup limited RT - Right: Suspicious, BI-RAD 4. Management: Ultrasound Core Biopsy of the right breast. A clinical breast exam by your physician is recommended on an annual basis and results should be correlated with mammographic findings. Results were given to the patient verbally at the time of exam. Electronically signed and approved by: Surya Rahman D.O. Radiologis
== END | disposition home or self-care (01) ==
LOC: RADMAMWWP 10:15
PROVIDERS: ATTEND Internal Medicine
DX: R92.8 Other abnormal and inconclusive findings on diagnostic imaging of breast (principal); Z78.0 Asymptomatic menopausal state
CPT/HCPCS: 77065; 76642; G0279; 77061

== ENCOUNTER → 2021-12-01 | Day surgery (SDC) | payer MEDICARE ==
--- NOTE | 2021-12-08 10:00 | USB ---
Reason for Exam: Post Procedure Mammogram. Last screening mammogram was performed less than 1 month ago. Patient History: Menarche at age 14. First Full-Term at age 21. Postmenopausal. Patient has history of breast feeding. Breast cancer, left, age 65. Colorectal cancer, age 51. Previous chest radiation therapy. Core Biopsy on the Left side. 03/15/2001, Malignant Stereotactic Core Biopsy on the left side. Malignant Excisional Biopsy. Malignant Lumpectomy. Radiation Therapy, left. Prior Study Comparison: 11/08/2020 Bilateral Screening Mammogram, [facility]. 11/09/2021 Bilateral MG 3D screening mammo w/cad, [facility]. 11/21/2021 Right MG 3D work up w/cad RT, [facility]. Tissue Density: Right: The breast tissue is heterogeneously dense. This may lower the sensitivity of mammography. Pathology Description: Breast biopsy 3 x cores. Right breast. Pathology Results: Result: Malignant, Invasive ductal carcinoma. RIGHT BREAST, 1:00, ULTRASOUND GUIDED CORE BIOPSY: Invasive moderately differentiated ductal carcinoma (Grade 2) with focal mucinous differentiation. See Surgical Pathology Cancer Case Summary. Overall Assessment: Malignant Assessment: MG diagnostic mammo RT wo CAD - Right: Known biopsy proven malignancy, BI-RAD 6. Management: Surgical Consultation of the right breast. Electronically signed and approved by: Christopher Zepeda M.D. Radiologis
== END ==
LOC: RADUSWWP 12:34
PROVIDERS: ATTEND Internal Medicine
DX: R92.8 Other abnormal and inconclusive findings on diagnostic imaging of breast (principal)
CPT/HCPCS: 88305; 88342; 88341; 77065; 19083; A4648

== ENCOUNTER → 2021-12-15 | Outpatient (CLI) | payer MEDICARE ==
[2021-12-15 09:10] VITALS: BP 96/64; PULSE 74; RESP 16; TEMP 98.3
--- NOTE | 2021-12-15 09:34 | P.GSHP ---
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 Surendra Tolliver regarding a right breast invasive ductal cancer. On a yearly mammogram the patient was noted to have a lesion in the right breast. This is a 0.9 x 0.7 cm lesion in the upper inner aspect. She did not feel any lumps masses or nodules of concern. Ultrasound-guided core biopsy on 7721 revealed a grade 2 invasive ductal carcinoma ER/OK positive and HER-2 negative. She has never had any surgery on the right breast. She was treated for a left breast cancer in 1999. She was treated with a lumpectomy and radiation therapy. She did not have any chemotherapy or hormone therapy. She also had colon cancer in 1986. This was treated with surgery only. She had a cologuard test 1 year ago which was (-). Note from Dr. Surendra Tolliver 12-12-21 reviewed Caffeine: 1 1/2 cups coffee/day nicotine: stopped 41 years ago; 1/2 PPD for 23 years chocolate: occasional hormones: BCP used them for a short time and got blood clots/ no other hormones Family history: Mother: Liver cancer patient: breast and colon cancer daughter: melanoma at 23 Hormonal history: Menarche: 14 breast fed: no, age at first : 22 menopause: 52 Surgical history: Colon resection Left breast surgery/ lumpectomy and axillary node dissection appy right knee replacement/ 2010 tubaligation bilateral cataract surgery Medical History: HTN boarderline diabetic ? gout Social History: Nicotine: Stopped 41 years ago Alcohol: Negative Drugs: Negative - Constitutional Constitutional: Denies chills, Denies fever - EENT Comment: bilateral cataract surgery Eyes: denies blurred vision, denies pain Ears: bilateral: tinnitus, deny: decreased hearing Ears, nose, mouth and throat: Denies headache, Denies sore throat - Breasts Breasts: bilateral: as per HPI - Cardiovascular Comment: HTN - Respiratory Respiratory: Denies cough, Denies 7 - Gastrointestinal Gastrointestinal: Denies abdominal pain, Denies diarrhea, Denies nausea, Denies vomiting - Genitourinary (Female) Genitourinary: Denies dysuria, Denies hematuria - Menstruation Menstruation: Reports postmenopausal - Musculoskeletal Musculoskeletal: Reports as per HPI - Integumentary Integumentary: Denies pruritus, Denies rash - Neurological Neurological: Reports numbness, Denies weakness - Psychiatric Psychiatric: Denies anxiety, Denies depression - Endocrine Endocrine: Denies fatigue - Hematologic/Lymphatic Comment: baby aspirin - Allergic/Immunologic Allergic/Immunologic: Reports as per HPI 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 History of Any Multi-Drug Resistant Organisms: None Reported Past Surgical History: Appendectomy, Bowel Resection, Breast Surgery Additional Past Surgical History / Comment(s): left breast lumpectomy Past Anesthesia/Blood Transfusion Reactions: No Reported Reaction Additional Past Anesthesia/Blood Transfusion Reaction / Comment(s): problem waking up after knee surgery Past Psychological History: No Psychological Hx Reported Smoking Status: Former smoker Past Alcohol Use History: None Reported Additional Past Alcohol Use History / Comment(s): quit smoking 1979 Past Drug Use History: None Reported - Past Family History Brother(s) Family Medical History: Diabetes Mellitus Mother Family Medical History: Cancer Additional Family Medical History / Comment(s): passed at 63 - liver cancer Medications and Allergies Home Medications Medication Instructions Recorded Confirmed Type Enalapril [Vasotec] 5 mg PO HS 07/29/18 12/15/21 History Levothyroxine Sodium [Synthroid] 75 mcg PO DAILY 07/29/18 12/15/21 History allopurinoL [Zyloprim] 300 mg PO HS 07/29/18 12/15/21 History metFORMIN HCL [Glucophage] 500 mg PO BID 07/29/18 12/15/21 History Aspirin EC [Ecotrin Low Dose] 81 mg PO DAILY 11/24/21 12/15/21 History Furosemide [Lasix] 20 mg PO DAILY 11/24/21 12/15/21 History Potassium Chloride [Klor-Con M10] 10 meq PO DAILY 11/24/21 12/15/21 History Ergocalciferol [Vitamin D2 (1250 1,250 mcg PO WEEKLY 12/15/21 12/15/21 History Mcg = 50660 Iu)] Allergies Allergy/AdvReac Type Severity Reaction Status Date / Time codeine AdvReac Nausea & Verified 12/15/21 09:08 Vomiting Surgical - Exam BMI: 36.6 - General no distress - Eyes normal ocular movement - Neck trachea midline - Respiratory normal respiratory effort - Cardiovascular Rhythm: regular Heart Sounds: normal: S1, S2 - Abdomen Abdomen: soft, non tender, no guarding, no rigid, no rebound - Integumentary normal turgor - Neurologic no disoriented, no combative - Musculoskeletal normal gait - Psychiatric oriented to time, oriented to person, oriented to place, speech is normal, memory intact Breast Exam: BRA: 48C inspection: bilateral grade 3 ptosis; postoperative and postradiation changes noted a left breast palpation: Right breast: Multi-positional exam fibrocystic changes no dominant masses or notches of concern Right axilla: No adenopathy of concern Left breast: Postoperative and postradiation changes, multiple positional exam no dominant masses or nodules of concern Left axilla: No adenopathy of concern Results Mammogram and ultrasound results reviewed Pathology results reviewed Assessment and Plan Assessment: Impression: Stage IA right breast invasive ductal carcinoma upper inner quadrant Prior left breast lumpectomy and axillary node dissection 1999 were tried to obtain pathology report Prior history of colon cancer Hypertension Questionable borderline diabetic Questionable gout Plan: Presentation of case at tumor board Patient most likely opt for a mastopexy incision that she has some asymmetry between the breast with needle localization lumpectomy right breast, possible undergo plastic tissue transfer, sentinel node biopsy, possible axillary node dissection Medical clearance Dr. Medel Risks and benefits of surgery are discussed with the patient and her . Risks include but are not limited to bleeding, infection, reaction to the anesthetic. If the margins were to be positive there is a possibility for additional resection. Additionally risks of sentinel lobe biopsy discussed with the patient and her . I've discussed with them that over the age of 70 she may not benefit from sentinel node biopsy. However despite this she would like to have these nodes sampled. This risk includes but is not limited to bleeding, infection, reaction to the anesthetic. Additionally numbness to the inner arm, or lymphedema. There could be potential damage to the thoracodorsal and long thoracic nerve resulting in wing scapula. They understand and wish to proceed. Dr. Gianfranco Tolliver
== END ==
LOC: WWCWWP 08:56
PROVIDERS: ATTEND Surgery
DX: C50.211 Malignant neoplasm of upper-inner quadrant of right female breast (principal); Z98.890 Other specified postprocedural states; I10 Essential (primary) hypertension; Z85.038 Personal history of other malignant neoplasm of large intestine; Z17.0 Estrogen receptor positive status [ER+]; E11.9 Type 2 diabetes mellitus without complications; Z86.718 Personal history of other venous thrombosis and embolism; Z87.891 Personal history of nicotine dependence; Z79.84 Long term (current) use of oral hypoglycemic drugs; Z88.5 Allergy status to narcotic agent

== ENCOUNTER → 2021-12-27 | Outpatient (CLI) | payer MEDICARE ==
--- NOTE | 2021-12-27 14:16 | BD ---
EXAMINATION TYPE: Axial Bone Density DATE OF EXAM: 12/27/2021 COMPARISON: NONE CLINICAL HISTORY: 86 years year old Female. ICD-10 CODE: Z79.890 POST-MENOPAUSAL W/HRT Height: 5 FT 4 IN Weight: 219 FRAX RISK QUESTIONS: Alcohol (3 or more units per day): NO Family History (Parent hip fracture): NO Glucocorticoids (More than 3mos): NO (Ex: prednisone, prednisolone, methylprednisolone, dexamethasone, and hydrocortisone). History of Fracture in Adulthood: NO Secondary Osteoporosis: 1. Type 1 Diabetes: TYPE 2 2. Hyperthyroidism: NO 3. Menopause before 45: NO 4. Malnutrition: NO 5. Chronic liver disease: NO Rheumatoid Arthritis: NO Current Tobacco Use: FORMER RISK FACTORS HISTORY OF: Surgery to Spine/Hip(right/left)/Wrist (right/left): NO Family History of Osteoporosis: NO Active: YES Diet low in dairy products/other sources of calcium: NO Postmenopausal woman: YES Take estrogen and/or progesterone medications: NO Lost more than 2 inches in height since high school: YES Frequent falls: NO Poor Health: GOOD Hyperparathyroidism: NO Adrenal Insufficiency: NO MEDICATIONS: Thyroid Medications: YES Which medication: LEVOTHYROXINE How Lon-4 YEARS Additional Medications: LEVOTHYROXINE, POTASSIUM, ENALAPRIL, METFORMIN, ALLOPURINOL,RICHARD SIM ALBERTO Additional History: BREAST CANCER EXAM MEASUREMENTS: Bone mineral densitometry was performed using the LUMOback System. Bone mineral density as measured about the Lumbar spine is: ----- L1-L4(G/cm2): 1.335 T Score Values are as follows: ----- L1: -0.3 ----- L2: 1.6 ----- L3: 2.2 ----- L4: 1.3 ----- L1-L4: 1.3 BASELINE Bone mineral density about the R hip (g/cm2): 0.811 Bone mineral density about the L hip (g/cm2): 0.839 T Score values are as follows: -----R Neck: -1.6 -----L Neck: -1.4 -----R Total: -0.9 -----L Total: -0.7 BASELINE FRAX%s: The graph provided illustrates a 12.8 % chance for a major osteoporotic fx and a 3.4 % chance for the hips probability for fx in 10 years time. IMPRESSION: Osteopenia (T Score between -2.5 and -1). There is slightly increased risk of fracture and the patient may be considered for treatment. Re-Screen 2-5 years. NOTE: T-SCORE=SD OF THE YOUNG ADULT MEAN.
== END | disposition home or self-care (01) ==
LOC: RADBDWWP 12:41
PROVIDERS: ATTEND Internal Medicine
DX: C50.211 Malignant neoplasm of upper-inner quadrant of right female breast (principal); M85.89 Other specified disorders of bone density and structure, multiple sites
CPT/HCPCS: 77080

== ENCOUNTER → 2022-02-03 | Outpatient (CLI) | payer MEDICARE ==
--- NOTE | 2022-02-03 13:25 | P.PN ---
Subjective Progress Note Date: 02/03/22 Principal diagnosis: right breast stage IA invasive ductal [id number] Snehal is an 86 year old white female seen in consultation for Dr. Surendra Tolliver regarding a right breast invasive ductal cancer. On a yearly mammogram the patient was noted to have a lesion in the right breast. This is a 0.9 x 0.7 cm lesion in the upper inner aspect. She did not feel any lumps masses or nodules of concern. Ultrasound-guided core biopsy on 7721 revealed a grade 2 invasive ductal carcinoma ER/[place] positive and HER-2 negative. She has never had any surgery on the right breast. She was treated for a left breast cancer in 1999. She was treated with a lumpectomy and radiation therapy. She did not have any chemotherapy or hormone therapy. She also had colon cancer in 1986. This was treated with surgery only. She had a cologuard test 1 year ago which was (-). Note from Dr. Surendra Tolliver 12-12-21 reviewed The patient's case was presented at tumor board and [id number]. [place] node biopsy was discussed at tumor board and the patient was called after the p resentation at tumor Board and would still like to have sentinel node biopsy performed. The patient was offered genetic testing which she declined. Caffeine: 1 1/2 cups coffee/day nicotine: stopped 41 years ago; 1/2 PPD for 23 years chocolate: occasional hormones: BCP used them for a short time and got blood clots/ no other hormones Family history: Mother: Liver cancer patient: breast and colon cancer daughter: melanoma at 23 Hormonal history: Menarche: 14 breast fed: no, age at first : 22 menopause: 52 Surgical history: Colon resection Left breast surgery/ lumpectomy and axillary node dissection appy right knee replacement/ 2010 tubaligation bilateral cataract surgery Medical History: HTN boarderline diabetic ? gout Social History: Nicotine: Stopped 41 years ago Alcohol: Negative Drugs: Negative - Constitutional Constitutional: Denies chills, Denies fever - EENT Comment: bilateral cataract surgery Eyes: denies blurred vision, denies pain Ears: bilateral: tinnitus, deny: decreased hearing Ears, nose, mouth and throat: Denies headache, Denies sore throat - Breasts Breasts: bilateral: as per HPI - Cardiovascular Comment: HTN - Respiratory Respiratory: Denies cough, Denies 7 - Gastrointestinal Gastrointestinal: Denies abdominal pain, Denies diarrhea, Denies nausea, Denies vomiting - Genitourinary (Female) Genitourinary: Denies dysuria, Denies hematuria - Menstruation Menstruation: Reports postmenopausal - Musculoskeletal Musculoskeletal: Reports as per HPI - Integumentary Integumentary: Denies pruritus, Denies rash - Neurological Neurological: Reports numbness, Denies weakness - Psychiatric Psychiatric: Denies anxiety, Denies depression - Endocrine Endocrine: Denies fatigue - Hematologic/Lymphatic Comment: baby aspirin - Allergic/Immunologic Allergic/Immunologic: Reports as per HPI Past Medical History Past Medical History: Cancer, CVA/TIA, Diabetes Mellitus, Hypertension, Thyroid Disorder Additional Past Medical History / Comment(s): gout, left breast ca, colon ca, 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, DVT in 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 control History of Any Multi-Drug Resistant Organisms: None Reported Past Surgical History: Appendectomy, Bowel Resection, Breast Surgery Additional Past Surgical History / Comment(s): left breast lumpectomy Past Anesthesia/Blood Transfusion Reactions: No Reported Reaction Additional Past Anesthesia/Blood Transfusion Reaction / Comment(s): problem waking up after knee surgery Past Psychological History: No Psychological Hx Reported Smoking Status: Former smoker Past Alcohol Use History: None Reported Additional Past Alcohol Use History / Comment(s): quit smoking 1979 Past Drug Use History: None Reported - Past Family History Brother(s) Family Medical History: Diabetes Mellitus Mother Family Medical History: Cancer Additional Family Medical History / Comment(s): passed at 63 - liver cancer Medications and Allergies Home Medications Medication Instructions Recorded Confirmed Type Enalapril [Vasotec] 5 mg PO HS 07/29/18 12/15/21 History Levothyroxine Sodium [Synthroid] 75 mcg PO DAILY 07/29/18 12/15/21 History allopurinoL [Zyloprim] 300 mg PO HS 07/29/18 12/15/21 History metFORMIN HCL [Glucophage] 500 mg PO BID 07/29/18 12/15/21 History Aspirin EC [Ecotrin Low Dose] 81 mg PO DAILY 11/24/21 12/15/21 History Furosemide [Lasix] 20 mg PO DAILY 11/24/21 12/15/21 History Potassium Chloride [Klor-Con M10] 10 meq PO DAILY 11/24/21 12/15/21 History Ergocalciferol [Vitamin D2 (1250 1,250 mcg PO WEEKLY 12/15/21 12/15/21 History Mcg = 27113 Iu)] Allergies Allergy/AdvReac Type Severity Reaction Status Date / Time codeine AdvReac Nausea & Verified 12/15/21 09:08 Vomiting Objective - Constitutional General appearance: Present: cooperative - EENT Eyes: Present: EOMI ENT: Present: hearing grossly normal - Neck Neck: Present: normal ROM - Respiratory Respiratory: bilateral: CTA - Cardiovascular Rhythm: regular Heart sounds: normal: S1, S2 - Integumentary Integumentary: Present: normal turgor - Musculoskeletal Musculoskeletal: Present: gait normal - Psychiatric Psychiatric: Present: A&O x's 3, appropriate affect, intact judgment & insight - Additional findings Additional findings: Breast Exam: BRA: 48C inspection: bilateral grade 3 ptosis; postoperative and postradiation changes noted in left breast palpation: Right breast: Multi-positional exam fibrocystic changes no dominant masses or notches of concern Right axilla: No adenopathy of concern Left breast: Postoperative and postradiation changes, multiple positional exam no dominant masses or nodules of concern Left axilla: No adenopathy of concern Assessment and Plan Assessment: Impression: Stage IA invasive ductal right breast cancer prior left breast cancer treatment HTN boarderline diabetic ? gout Prior treatment for colon cancer Plan: Needle localization right breast lumpectomy she will not have a mastopexy incision, possible onco-plastic tissue transfer, right sentinel node injection, right sentinel node biopsy, possible right axillary node dissection Medical clearance Dr. Medel Risks and benefits of the surgery were discussed with the patient and her . Risk included but were not limited to bleeding, infection, reaction to the anesthetic. The margins were positive there is a possibility for additional resection. Additionally risk of sentinel node biopsy were discussed with the patient and her . I discussed with them that over the age of 70 she may Benefit from sentinel node biopsy, however despite this she would likely show evidence that the nodes are negative. Dissection in the axilla includes risks of bleeding, infection, and reaction to the anesthetic. Additionally numbness to the inner arm her lymphedema may occur. The gallbladder be potential damage to the thoracal dorsal or long thoracic nerve resulting in length scapula. She understands and wishes to proceed. CC: Dr. Medel
[2022-02-03 13:30] VITALS: BP 119/76; PULSE 86; RESP 18; TEMP 98.2
== END ==
LOC: WWCWWP 12:50
PROVIDERS: ATTEND Surgery
DX: C50.211 Malignant neoplasm of upper-inner quadrant of right female breast (principal); E11.9 Type 2 diabetes mellitus without complications; Z86.73 Personal history of transient ischemic attack (TIA), and cerebral infarction without residual deficits; Z86.718 Personal history of other venous thrombosis and embolism; Z88.5 Allergy status to narcotic agent; Z17.0 Estrogen receptor positive status [ER+]; I10 Essential (primary) hypertension; Z87.891 Personal history of nicotine dependence; Z79.84 Long term (current) use of oral hypoglycemic drugs; Z79.82 Long term (current) use of aspirin

== ENCOUNTER 2022-02-21 08:16 | Day surgery (SDC) | payer MEDICARE ==
[~2022-02-21 08:16] MED LIST: ALPRAZolam 0.25 MG TAB PO PRN; HEPARIN SODIUM,PORCINE/PF 5,000 UNIT/0.5 ML SYRINGE SQ PRN; LACTATED RINGERS 1,000 ML IV SCH; ONDANSETRON 4 MG/2 ML VIAL IVP ONE; Pre Op ABX Message 1 EACH MISC MISCELLANE ONE
[2022-02-21 09:43] LABS: Glucose,Whole Blood 91 mg/dL (70-110)
[2022-02-21] MEDS ORDERED: LIDOCAINE 1% INJ 10MG/ML (20 ML MDV) SQ ONE (10:03)
--- NOTE | 2022-02-21 11:03 | P.NAPBC ---
NAPBC Queries - NAPBC Queries Was patient's case review presented at [facility] tumor board? If no, comment.: Yes Was patient's pathology reviewed at [facility]? If no, comment.: Yes Was breast conservation surgery offered? If no, comment.: Yes Was sentinel node biopsy offered? If no, comment.: Yes Was diagnosis confirmed by percutaneous core biopsy? If no, comment.: Yes Is patient mastectomy patient?: No Was a preop referral to reconstructive surgeon offered?: No Clinical Stage: stage IA; [id number] right breast invasive ductal cancer
[2022-02-21] MEDS ORDERED: LIDOCAINE 2% INJ 20 MG/ML (2 ML VIAL) ONE (11:29)
[2022-02-21] MEDS ORDERED: fentaNYL (PF) 50 MCG/ML 2 ML AMP ONE (11:29)
[2022-02-21] MEDS ORDERED: PROPOFOL 10 MG/ML 20 ML VIAL IV ONE (11:29)
--- NOTE | 2022-02-21 12:44 | NM ---
EXAMINATION TYPE: NM sentinel node injection DATE OF EXAM: 02/21/2022 COMPARISON: NONE HISTORY: Right breast cancer TECHNIQUE AND FINDINGS: The procedure of sentinel lymph node injection was explained to the patient. The benefits, alternatives, and risks were discussed. An informed consent was then obtained. Overlying skin is cleaned with sterile alcohol. Following this, 523 uCi [id number] Tilmanocept was inject ed in the upper outer aspect of the right nipple intradermally. The patient tolerated the procedure well without any immediate complication. The patient was kept in the radiology department for short stay after the procedure and then taken to surgery for surgical p rocedure what is presumed intraoperative gamma probe will be used for sentinel lymph node detection. IMPRESSION: Right breast radiotracer injection for sentinel node localization as above.
--- NOTE | 2022-02-21 13:26 | P.OP ---
Date of Procedure: 02/21/22 Preoperative Diagnosis: Right breast invasive ductal carcinoma Postoperative Diagnosis: Same Procedure(s) Performed: Right breast needle localization lumpectomy, onco-plastic tissue transfer 84 cm, right sentinel node biopsy Anesthesia: BARTOLO Surgeon: Amber Alvarez Estimated Blood Loss (ml): 10 IV fluids (ml): 600 Pathology: other (Right breast lumpectomy, right sentinal node biopsy) Disposition: same day Indications for Procedure: Right breast invasive ductal carcinoma Operative Findings: Fibrofatty breast tissue Description of Procedure: The patient was first seen in the radiology department where needle localization of the area of concern in the right breast was performed. The active tracer was injected in the periareolar region. The patient was brought to the operative suite. Following induction of anesthesia the neoprobe was used to identify radioactivity in the axilla. Following this the right breast and axilla were prepped and draped in a sterile fashion. The axilla was approached initially. Incision was made in the axilla. Greatest radioactivity. Dissection was performed through the skin and subcutaneous tissue into the axillary area. The neoprobe was utilized to identify the area of greatest radioactivity. This was grasped using an Allis clamp. Excision was performed. A palpable lymph node was identified. The 10 second count on the lymph node was 30,425. The background count for 10 seconds was 24. The axilla was well irrigated. The deep tissues were closed using 3-0 Vicryl suture. Several vessels were suture ligated. The skin was closed using 3-0 subcuticular continuous suture. A 4-0 subcuticular Monocryl suture was placed. Following this the area of the breast was approached. An incision was made near the shaft of the needle. This was carried down around the hook of the needle. Surrounding tissue was excised. Posterior dissection was onto the chest wall. The area of resection was 9 x 5 cm. Following this the specimen was painted for orientation. Radiograph revealed the area of concern had been removed. Titanium clips were placed. A superior flap of 7 x 3 cm was developed. An inferior flap 6 x 3 cm was developed. The soft tissues were mobilized into the defect which was 9 x 4 cm. A total of 84 cm of tissue was transferred. The subcutaneous tissues were closed using 3-0 Vicryl suture. The skin was closed using 4-0 Monocryl. Steri-Strips were applied. The patient tolerated the procedure in stable condition. All instrument and sponge counts were correct at the end of the case.
--- NOTE | 2022-02-21 13:29 | P.DS ---
Providers Attending physician: Amber Alvarez Primary care physician: Timothy Medel Plan - Discharge Summary Discharge Rx Participant: No New Discharge Prescriptions: No Action metFORMIN HCL [Glucophage] 500 mg PO BID Levothyroxine Sodium [Synthroid] 75 mcg PO DAILY Enalapril [Vasotec] 5 mg PO HS allopurinoL [Zyloprim] 300 mg PO HS Aspirin EC [Ecotrin Low Dose] 81 mg PO DAILY Furosemide [Lasix] 20 mg PO DAILY Ergocalciferol [Vitamin D2 (1250 Mcg = 82204 Iu)] 1,250 mcg PO WEEKLY Potassium Chloride [Klor-Con M10] 10 meq PO DAILY Discharge Medication List Enalapril [Vasotec] 5 mg PO HS 07/29/18 [History] Levothyroxine Sodium [Synthroid] 75 mcg PO DAILY 07/29/18 [History] allopurinoL [Zyloprim] 300 mg PO HS 07/29/18 [History] metFORMIN HCL [Glucophage] 500 mg PO BID 07/29/18 [History] Aspirin EC [Ecotrin Low Dose] 81 mg PO DAILY 11/24/21 [History] Furosemide [Lasix] 20 mg PO DAILY 11/24/21 [History] Potassium Chloride [Klor-Con M10] 10 meq PO DAILY 11/24/21 [History] Ergocalciferol [Vitamin D2 (1250 Mcg = 56034 Iu)] 1,250 mcg PO WEEKLY 12/15/21 [History] Follow up Appointment(s)/Referral(s): Amber Alvarez MD [STAFF PHYSICIAN] - 02/24/22 10:20 am Activity/Diet/Wound Care/Special Instructions: Second appointment with Dr. Jonathan Leyva is 03/09/22 at 2:[address] until seen by Dr. Jonathan rodriguez shower after 48 hours wear bra at all times Discharge Disposition: HOME SELF-CARE
[2022-02-21 13:44] VITALS: TEMP 97
[2022-02-21] MEDS: fentaNYL (PF) 50 MCG/ML 2 ML AMP IV PRN ×2 (13:59→14:35)
[2022-02-21 15:59] VITALS: RESP 20
[2022-02-21 16:30] VITALS: BP 116/78; PULSE 70
== END 2022-02-21 16:42 | disposition home or self-care (01) ==
LOC: OR 08:16
PROVIDERS: ATTEND Surgery
DX: C50.911 Malignant neoplasm of unspecified site of right female breast (principal); I10 Essential (primary) hypertension; E11.9 Type 2 diabetes mellitus without complications; E07.9 Disorder of thyroid, unspecified; G45.9 Transient cerebral ischemic attack, unspecified; Z80.1 Family history of malignant neoplasm of trachea, bronchus and lung; Z90.49 Acquired absence of other specified parts of digestive tract; Z96.651 Presence of right artificial knee joint; Z98.51 Tubal ligation status; Z98.41 Cataract extraction status, right eye; Z98.42 Cataract extraction status, left eye; Z85.3 Personal history of malignant neoplasm of breast; Z85.038 Personal history of other malignant neoplasm of large intestine; Z90.11 Acquired absence of right breast and nipple; Z83.3 Family history of diabetes mellitus; Z80.0 Family history of malignant neoplasm of digestive organs; Z88.5 Allergy status to narcotic agent; Z79.01 Long term (current) use of anticoagulants; Z79.84 Long term (current) use of oral hypoglycemic drugs; Z79.82 Long term (current) use of aspirin; Z79.890 Hormone replacement therapy
CPT/HCPCS: 38505; 88342; 88307; 88341; 76098; 19281; 38792; C1819; A9520; J2405; J2001 ×2; J3010; J2704; J1644

== ENCOUNTER → 2022-03-07 | Outpatient (CLI) | payer MEDICARE ==
[2022-03-07 10:02] VITALS: BP 134/73; PULSE 81; RESP 18
--- NOTE | 2022-03-07 10:10 | P.PN ---
Progress Note - Text Progress Note Date: 03/07/22 Snehal is an 86-year-old white female status post right breast lumpectomy and sentinel node biopsy on . Postoperatively she has done well. 4 lymph nodes were removed all negative for cancer. The lumpectomy specimen revealed all margins to be negative for invasive cancer. Lungs: Clear Heart: Regular rate and rhythm Incisions: Clean and dry Plan: Follow-up ideation oncology Follow-up medical oncology Follow-up urine 4 months CC: Dr. Medel
== END ==
LOC: WWCWWP 09:51
PROVIDERS: ATTEND Surgery
DX: C50.211 Malignant neoplasm of upper-inner quadrant of right female breast (principal); Z88.5 Allergy status to narcotic agent; Z87.891 Personal history of nicotine dependence; E66.9 Obesity, unspecified; Z68.37 Body mass index [BMI] 37.0-37.9, adult

== ENCOUNTER → 2022-11-13 | Outpatient (CLI) | payer MEDICARE ==
--- NOTE | 2022-11-13 08:33 | MM ---
Reason for Exam: Follow-up at short interval from prior study. Last screening mammogram was performed 12 month(s) ago. Patient History: Menarche at age 14. First Full-Term at age 21. Postmenopausal. Patient has history of breast feeding. Breast cancer, left, age 65. Colorectal cancer, age 51. Breast cancer, right, age 86. Previous chest radiation therapy. 02/21/2022, Lumpectomy on the Right side. 02/21/2022, Malignant MG pre op needle loc RT on the right side. 12/01/2021, Malignant US biopsy breast VAD RT on the right side. Core Biopsy on the Left side. 03/15/2001, Malignant Stereotactic Core Biopsy on the left side. Malignant Excisional Biopsy. Malignant Lumpectomy. Radiation Therapy, left. Tissue Density: The breast tissue is heterogeneously dense. This may lower the sensitivity of mammography. Findings: Analyzed By CAD. Bilateral breast clips are present. No new suspicious masses, calcifications or distortions. Overall Assessment: Benign, BI-RAD 2 Management: Diagnostic Mammogram of both breasts in 1 year. Results were given to the patient verbally at the time of exam. Patient should continue monthly self-breast exams. A clinical breast exam by your physician is recommended on an annual basis. This exam should not preclude additional follow-up of suspicious palpable abnormalities. Note on Tete scores and lifetime risk: 1. A Tete score greater than 3% is considered moderate risk. If this is the case, consider specialist referral to assess eligibility for a risk reducing agent. 2. If overall lifetime risk for the development of breast cancer is 20% or higher, the patient may qualify for future screening with alternating mammogram and breast MRI. Electronically signed and approved by: Todd Lantigua DO
== END | disposition home or self-care (01) ==
LOC: RADMAMWWP 08:10
PROVIDERS: ATTEND Surgery
DX: Z85.3 Personal history of malignant neoplasm of breast (principal); Z78.0 Asymptomatic menopausal state
CPT/HCPCS: 77066; G0279; 77062

== ENCOUNTER → 2022-11-17 | Outpatient (CLI) | payer MEDICARE ==
[2022-11-17 09:08] VITALS: BP 113/72; PULSE 55; RESP 17; TEMP 97.6
--- NOTE | 2022-11-17 09:17 | P.PN ---
Subjective Progress Note Date: 11/17/22 Principal diagnosis: Right breast invasive ductal carcinoma stage I 2021, left breast invasive carcinoma 1999, colon cancer 1986 right breast invasive ductal cancer stage IA 2021, left breast cancer 1999, colon cancer 1986 Snehal is an 86 year old white female seen in consultation for Dr. Surendra Tolliver regarding a right breast invasive ductal cancer. On a yearly mammogram the patient was noted to have a lesion in the right breast. This is a 0.9 x 0.7 cm lesion in the upper inner aspect. She did not feel any lumps masses or nodules of concern. Ultrasound-guided core biopsy on 7721 revealed a grade 2 invasive ductal carcinoma ER/TN positive and HER-2 negative. She has never had any surgery on the right breast. She was treated for a left breast cancer in 1999. She was treated with a lumpectomy and radiation therapy. She did not have any chemotherapy or hormone therapy. She also had colon cancer in 1986. This was treated with surgery only. She had a Cologaurd test which was (-) within the past two years as per the patient. The patient on underwent a right breast lumpectomy and sentinel node biopsy. 4 nodes were removed all negative for cancer, all margins were negative. She had a bilateral mammogram on 11-13-22 which was BIRAD 2. She is not complaining of any new lumps masses or nodules of concern in either breast. She did not have any chemotherapy, hormone therapy, radiation therapy. Caffeine: 1 1/2 cups coffee/day nicotine: stopped 42 years ago; 1/2 PPD for 23 years chocolate: occasional hormones: BCP used them for a short time and got blood clots/ no other hormones She has not had any radiation therapy, hormone therapy, or chemotherapy Her last mammogram was on 11-13-22. Family history: Mother: Liver cancer patient: breast and colon cancer daughter: melanoma at 23 Hormonal history: Menarche: 14 breast fed: no, age at first : 22 menopause: 52 Surgical history: Colon resection Left breast surgery/ lumpectomy and axillary node dissection appy right knee replacement/ 2010 tubaligation bilateral cataract surgery Medical History: HTN boarderline diabetic ?/ improved gout Social History: Nicotine: Stopped 41 years ago Alcohol: Negative Drugs: Negative - Constitutional Constitutional: Denies chills, Denies fever - EENT Comment: bilateral cataract surgery Eyes: denies blurred vision, denies pain Ears: bilateral: tinnitus, deny: decreased hearing Ears, nose, mouth and throat: Denies headache, Denies sore throat - Breasts Breasts: bilateral: as per HPI - Cardiovascular Comment: HTN - Respiratory Respiratory: Denies cough - Gastrointestinal Gastrointestinal: Denies abdominal pain, Denies diarrhea, Denies nausea, Denies vomiting - Genitourinary (Female) Genitourinary: Denies dysuria, Denies hematuria - Menstruation Menstruation: Reports postmenopausal - Musculoskeletal Musculoskeletal: Reports as per HPI - Integumentary Integumentary: Denies pruritus, Denies rash - Neurological Neurological: Reports numbness, Denies weakness - Psychiatric Psychiatric: Denies anxiety, Denies depression - Endocrine Endocrine: Denies fatigue - Hematologic/Lymphatic Comment: baby aspirin - Allergic/Immunologic Allergic/Immunologic: Reports as per HPI Past Medical History Past Medical History: Cancer, CVA/TIA, Diabetes Mellitus, Hypertension, Thyroid Disorder Additional Past Medical History / Comment(s): gout, left breast ca, colon ca, 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, DVT in 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 control History of Any Multi-Drug Resistant Organisms: None Reported Past Surgical History: Appendectomy, Bowel Resection, Breast Surgery Additional Past Surgical History / Comment(s): left breast lumpectomy Past Anesthesia/Blood Transfusion Reactions: No Reported Reaction Additional Past Anesthesia/Blood Transfusion Reaction / Comment(s): problem waking up after knee surgery Past Psychological History: No Psychological Hx Reported Smoking Status: Former smoker Past Alcohol Use History: None Reported Additional Past Alcohol Use History / Comment(s): quit smoking 1979 Past Drug Use History: None Reported - Past Family History Brother(s) Family Medical History: Diabetes Mellitus Mother Family Medical History: Cancer Additional Family Medical History / Comment(s): passed at 63 - liver cancer Medications and Allergies Home Medications Medication Instructions Recorded Confirmed Type Enalapril [Vasotec] 5 mg PO HS 07/29/18 12/15/21 History Levothyroxine Sodium [Synthroid] 75 mcg PO DAILY 07/29/18 12/15/21 History allopurinoL [Zyloprim] 300 mg PO HS 07/29/18 12/15/21 History metFORMIN HCL [Glucophage] 500 mg PO BID 07/29/18 12/15/21 History Aspirin EC [Ecotrin Low Dose] 81 mg PO DAILY 11/24/21 12/15/21 History Furosemide [Lasix] 20 mg PO DAILY 11/24/21 12/15/21 History Potassium Chloride [Klor-Con M10] 10 meq PO DAILY 11/24/21 12/15/21 History Ergocalciferol [Vitamin D2 (1250 1,250 mcg PO WEEKLY 12/15/21 12/15/21 History Mcg = 85410 Iu)] Allergies Allergy/AdvReac Type Severity Reaction Status Date / Time codeine AdvReac Nausea & Verified 12/15/21 09:08 Vomiting Objective - Constitutional General appearance: Present: cooperative - EENT Eyes: Present: EOMI ENT: Present: hearing grossly normal - Neck Neck: Present: normal ROM - Respiratory Respiratory: bilateral: CTA - Cardiovascular Rhythm: regular Heart sounds: normal: S1, S2 - Gastrointestinal General gastrointestinal: Present: soft - Integumentary Integumentary: Present: normal turgor - Musculoskeletal Musculoskeletal: Present: gait normal - Psychiatric Psychiatric: Present: A&O x's 3, appropriate affect, intact judgment & insight - Additional findings Additional findings: Breast Exam: BRA: 48C inspection: bilateral grade 3 ptosis; postoperative and postradiation changes noted in left breast, post surgical right breast palpation: Right breast: Multi-positional exam fibrocystic changes no dominant masses or nodules of concern Right axilla: No adenopathy of concern Left breast: Postoperative and postradiation changes, multiple positional exam no dominant masses or nodules of concern Left axilla: No adenopathy of concern Assessment and Plan Assessment: Impression: Stage 1A invasive ductal carcinoma right breast take treated with lumpectomy and sentinel node biopsy, no evidence of recurrence Prior history of colon cancer Prior history of left breast cancer bilateral mammogram 11-13-22 BIRAD 2 Patient declined radiation/hormonal/chemotherapy Plan: Bilateral mammogram in October 2023 with examination at that time appointment in 6 months for examination CC: Dr. Medel
== END ==
LOC: WWCWWP 08:51
PROVIDERS: ATTEND Surgery
DX: R92.8 Other abnormal and inconclusive findings on diagnostic imaging of breast (principal); C18.9 Malignant neoplasm of colon, unspecified; I10 Essential (primary) hypertension; D05.11 Intraductal carcinoma in situ of right breast; M10.9 Gout, unspecified; E11.9 Type 2 diabetes mellitus without complications; Z86.73 Personal history of transient ischemic attack (TIA), and cerebral infarction without residual deficits; Z79.82 Long term (current) use of aspirin; Z79.890 Hormone replacement therapy; Z88.5 Allergy status to narcotic agent; Z79.84 Long term (current) use of oral hypoglycemic drugs; Z90.49 Acquired absence of other specified parts of digestive tract; Z87.891 Personal history of nicotine dependence; Z85.3 Personal history of malignant neoplasm of breast

== ENCOUNTER → 2023-06-22 | Outpatient (CLI) | payer MEDICARE ==
[2023-06-22 10:27] VITALS: BP 107/70; PULSE 68; RESP 17; TEMP 97.8
--- NOTE | 2023-06-22 10:46 | P.PN ---
Subjective Progress Note Date: 06/22/23 05-22-24 Principal diagnosis: Right breast invasive ductal carcinoma stage I 2021, left breast invasive carcinoma 1999, colon cancer 1986 Snehal is an 86 year old white female seen in consultation for Dr. Surendra Tolliver regarding a right breast invasive ductal cancer. On a yearly mammogram the patient was noted to have a lesion in the right breast. This is a 0.9 x 0.7 cm lesion in the upper inner aspect. She did not feel any lumps masses or nodules of concern. Ultrasound-guided core biopsy on 7721 revealed a grade 2 invasive ductal carcinoma ER/HI positive and HER-2 negative. She has never had any surgery on the right breast. She was treated for a left breast cancer in 1999. She was treated with a lumpectomy and radiation therapy. She did not have any chemotherapy or hormone therapy. She also had colon cancer in 1986. This was treated with surgery only. She had a Cologaurd test which was (-) within the past two years as per the patient. The patient on underwent a right breast lumpectomy and sentinel node biopsy. 4 nodes were removed all negative for cancer, all margins were negative. She had a bilateral mammogram on 11-13-22 which was BIRAD 2. She is not complaining of any new lumps masses or nodules of concern in either breast. She did not have any chemotherapy, hormone therapy, radiation therapy. She is complaining of lumps in bilateral chest menodza. That on the right seems to have increased in size more than that on the left. She has had a 15 pound intentional weight loss. Caffeine: 1 1/2 cups coffee/day nicotine: stopped 42 years ago; 1/2 PPD for 23 years chocolate: occasional hormones: BCP used them for a short time and got blood clots/ no other hormones She has not had any radiation therapy, hormone therapy, or chemotherapy Her last mammogram was on 11-13-22. Family history: Mother: Liver cancer patient: breast and colon cancer daughter: melanoma at 23 Hormonal history: Menarche: 14 breast fed: no, age at first : 22 menopause: 52 Surgical history: Colon resection Left breast surgery/ lumpectomy and axillary node dissection appy right knee replacement/ 2010 tubaligation bilateral cataract surgery Medical History: HTN boarderline diabetic ?/ improved gout Social History: Nicotine: Stopped 41 years ago Alcohol: Negative Drugs: Negative - Constitutional Constitutional: Denies chills, Denies fever - EENT Comment: bilateral cataract surgery Eyes: denies blurred vision, denies pain Ears: bilateral: tinnitus, deny: decreased hearing Ears, nose, mouth and throat: Denies headache, Denies sore throat - Breasts Breasts: bilateral: as per HPI - Cardiovascular Comment: HTN - Respiratory Respiratory: Denies cough - Gastrointestinal Gastrointestinal: Denies abdominal pain, Denies diarrhea, Denies nausea, Denies vomiting - Genitourinary (Female) Genitourinary: Denies dysuria, Denies hematuria - Menstruation Menstruation: Reports postmenopausal - Musculoskeletal Musculoskeletal: Reports as per HPI - Integumentary Integumentary: Denies pruritus, Denies rash - Neurological Neurological: Reports numbness, Denies weakness - Psychiatric Psychiatric: Denies anxiety, Denies depression - Endocrine Endocrine: Denies fatigue - Hematologic/Lymphatic Comment: baby aspirin - Allergic/Immunologic Allergic/Immunologic: Reports as per HPI 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 History of Any Multi-Drug Resistant Organisms: None Reported Past Surgical History: Appendectomy, Bowel Resection, Breast Surgery Additional Past Surgical History / Comment(s): left breast lumpectomy Past Anesthesia/Blood Transfusion Reactions: No Reported Reaction Additional Past Anesthesia/Blood Transfusion Reaction / Comment(s): problem waking up after knee surgery Past Psychological History: No Psychological Hx Reported Smoking Status: Former smoker Past Alcohol Use History: None Reported Additional Past Alcohol Use History / Comment(s): quit smoking 1979 Past Drug Use History: None Reported - Past Family History Brother(s) Family Medical History: Diabetes Mellitus Mother Family Medical History: Cancer Additional Family Medical History / Comment(s): passed at 63 - liver cancer Medications and Allergies Home Medications Medication Instructions Recorded Confirmed Type Enalapril [Vasotec] 5 mg PO HS 07/29/18 12/15/21 History Levothyroxine Sodium [Synthroid] 75 mcg PO DAILY 07/29/18 12/15/21 History allopurinoL [Zyloprim] 300 mg PO HS 07/29/18 12/15/21 History metFORMIN HCL [Glucophage] 500 mg PO BID 07/29/18 12/15/21 History Aspirin EC [Ecotrin Low Dose] 81 mg PO DAILY 11/24/21 12/15/21 History Furosemide [Lasix] 20 mg PO DAILY 11/24/21 12/15/21 History Potassium Chloride [Klor-Con M10] 10 meq PO DAILY 11/24/21 12/15/21 History Ergocalciferol [Vitamin D2 (1250 1,250 mcg PO WEEKLY 12/15/21 12/15/21 History Mcg = 22956 Iu)] Allergies Allergy/AdvReac Type Severity Reaction Status Date / Time codeine AdvReac Nausea & Verified 12/15/21 09:08 Vomiting Objective - Vital Signs Vital signs: Vital Signs Temp 97.8 F 06/22/23 10:04 Pulse 68 06/22/23 10:04 Resp 17 06/22/23 10:04 BP 107/70 06/22/23 10:04 Pulse Ox 99 06/22/23 10:04 FiO2 Intake & Output 06/21/23 06/22/23 06/22/23 18:59 06:59 18:59 Weight 97.522 kg - Constitutional General appearance: Present: cooperative - EENT Eyes: Present: EOMI ENT: Present: hearing grossly normal - Neck Neck: Present: normal ROM - Respiratory Respiratory: bilateral: CTA - Cardiovascular Heart sounds: normal: S1, S2 - Integumentary Integumentary: Present: normal turgor - Musculoskeletal Musculoskeletal: Present: gait normal - Psychiatric Psychiatric: Present: A&O x's 3, appropriate affect, intact judgment & insight - Additional findings Additional findings: Breast Exam: BRA: 48C inspection: bilateral grade 3 ptosis; postoperative and postradiation changes noted in left breast, post surgical right breast palpation: Right breast: Multi-positional exam fibrocystic well healed scar right breast, at the superior aspect of the scar there is approximately a 1 cm area of nodularity which was not present on her last examination no other dominant masses or nodules of concern Right axilla: No adenopathy of concern Left breast: Postoperative and postradiation changes, multiple positional exam no dominant masses or nodules of concern, on the superior aspect of the incision there does appear to be some increased nodularity Left axilla: No adenopathy of concern Assessment and Plan Assessment: Impression: Stage 1A invasive ductal carcinoma right breast treated with lumpectomy and sentinel node biopsy, no evidence of recurrence 2021 Prior history of colon cancer Prior history of left breast cancer 1999 bilateral mammogram 11-13-22 BIRAD 2 Patient declined radiation/hormonal/chemotherapy New nodularity right chest wall near the incision site, nodularity near incision site left breast Plan: Bilateral mammogram in October 2023 with examination at that time Bilateral breast ultrasound with attention to palpable area right and left breast, ultrasound-guided core biopsy if anything of concern is noted Appointment following ultrasound of both breast CC: Dr. Medel
== END ==
LOC: WWCWWP 09:22
PROVIDERS: ATTEND Surgery
DX: I10 Essential (primary) hypertension (principal); E11.9 Type 2 diabetes mellitus without complications; M10.9 Gout, unspecified; E07.9 Disorder of thyroid, unspecified; Z85.3 Personal history of malignant neoplasm of breast; Z85.038 Personal history of other malignant neoplasm of large intestine; Z87.891 Personal history of nicotine dependence; Z86.73 Personal history of transient ischemic attack (TIA), and cerebral infarction without residual deficits; Z79.890 Hormone replacement therapy; Z79.899 Other long term (current) drug therapy; Z79.82 Long term (current) use of aspirin; Z88.5 Allergy status to narcotic agent; Z79.84 Long term (current) use of oral hypoglycemic drugs

== ENCOUNTER → 2023-07-02 | Outpatient (CLI) | payer MEDICARE ==
--- NOTE | 2023-07-02 10:47 | USB ---
Reason for Exam: Clinical finding. Patient History: Menarche at age 14. First Full-Term at age 21. Postmenopausal. Patient has history of breast feeding. Breast cancer, left, age 65. Colorectal cancer, age 51. Breast cancer, right, age 86. Previous chest radiation therapy. 02/21/2022, Lumpectomy on the Right side. 02/21/2022, Malignant MG pre op needle loc RT on the right side. 12/01/2021, Malignant US biopsy breast VAD RT on the right side. Core Biopsy on the Left side. 03/15/2001, Malignant Stereotactic Core Biopsy on the left side. Malignant Excisional Biopsy. Malignant Lumpectomy. Radiation Therapy, left. Technique: Method: Targeted. Prior Study Comparison: 11/21/2021 Right MG 3D work up w/cad RT, [facility]. 12/01/2021 Right MG diagnostic mammo RT wo CAD, [facility]. 11/13/2022 Bilateral MG 3D diag mammo w/cad JASON, [facility]. Findings: The upper section of the breast of the left breast, the upper inner quadrant of the right breast, the area of palpable concern of both breasts, the axilla of the left breast and the retroareolar of both breasts were scanned. Technique utilized:US breast limited BILAT Image; Ultrasound imaging of: Area of concern, retroareolar region and axilla. At the area of palpable abnormality in the right breast at 1:00 11 cm from the nipple measures a 18 x 6 x 13 mm complex cystic lesion. No prior imaging of this lesion is available. At the area of palpable abnormality in the left breast at 11:00 8 cm from the nipple is a heterogenous area with shadowing measuring 16 x 9 x 13 mm. This is felt to correlate with patient's post treatment changes seen on prior mammography.Technique utilized:US breast limited BILAT Image; Ultrasound imaging of: Area of concern, retroareolar region and axilla. * At the area of palpable abnormality in the right breast at 1:00 11 cm from the nipple measures a 18 x 6 x 13 mm complex cystic lesion. No prior imaging of this lesion is available. * At the area of palpable abnormality in the left breast at 11:00 8 cm from the nipple is a heterogenous area with shadowing measuring 16 x 9 x 13 mm. This is felt to correlate with patient's post treatment changes seen on prior mammography. Overall Assessment: Probably benign, BI-RAD 3 Management: Diagnostic Breast Ultrasound of the right breast in 6 months. A clinical breast exam by your physician is recommended on an annual basis and results should be correlated with mammographic findings. This exam should not preclude additional follow-up of suspicious palpable abnormalities. Results were given to the patient verbally at the time of exam. Electronically signed and approved by: Todd Lantigua DO
== END | disposition home or self-care (01) ==
LOC: RADUSWWP 10:06
PROVIDERS: ATTEND Surgery
DX: C19 Malignant neoplasm of rectosigmoid junction (principal); Z85.3 Personal history of malignant neoplasm of breast

== ENCOUNTER → 2023-07-06 | Outpatient (CLI) | payer MEDICARE ==
[2023-07-06 10:34] VITALS: BP 107/72; PULSE 92; RESP 16; TEMP 97.9
--- NOTE | 2023-07-06 10:36 | P.PN ---
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 Surendra Tolliver regarding a right breast invasive ductal cancer. On a yearly mammogram the patient was noted to have a lesion in the right breast. This is a 0.9 x 0.7 cm lesion in the upper inner aspect. She did not feel any lumps masses or nodules of concern. Ultrasound-guided core biopsy on 7721 revealed a grade 2 invasive ductal carcinoma ER/ME positive and HER-2 negative. She has never had any surgery on the right breast. She was treated for a left breast cancer in 1999. She was treated with a lumpectomy and radiation therapy. She did not have any chemotherapy or hormone therapy. She also had colon cancer in 1986. This was treated with surgery only. She had a Cologaurd test which was (-) within the past two years as per the patient. The patient on underwent a right breast lumpectomy and sentinel node biopsy. 4 nodes were removed all negative for cancer, all margins were negative. She had a bilateral mammogram on 11-13-22 which was BIRAD 2. She is not complaining of any new lumps masses or nodules of concern in either breast. She did not have any chemotherapy, hormone therapy, radiation therapy. She is complaining of lumps in bilateral chest mendoza. That on the right seems to have increased in size more than that on the left. She has had a 15 pound intentional weight loss. on her examination on 06-22-23 nodularity was noted near incisions in both breast. An ultrasound was done on 07-02-23. The left breast with posttreatment changes results of ultrasound: Right breast, at the site of palpable abnormality in the right breast at 1:00 measures an 18 x 6 x 13 mm complex cystic lesion repeat ultrasound in 6 months recommended At the area of palpable abnormality in the left breast at 11:00 is a heterogeneous area with shadowing measuring 16 x 9 x 13 mm felt to correlate with patient's posttreatment changes seen on prior mammography Caffeine: 1 1/2 cups coffee/day nicotine: stopped 42 years ago; 1/2 PPD for 23 years chocolate: occasional hormones: BCP used them for a short time and got blood clots/ no other hormones She has not had any radiation therapy, hormone therapy, or chemotherapy Her last mammogram was on 11-13-22. Family history: Mother: Liver cancer patient: breast and colon cancer daughter: melanoma at 23 Hormonal history: Menarche: 14 breast fed: no, age at first : 22 menopause: 52 Surgical history: Colon resection Left breast surgery/ lumpectomy and axillary node dissection appy right knee replacement/ 2010 tubaligation bilateral cataract surgery Medical History: HTN boarderline diabetic ?/ improved gout Social History: Nicotine: Stopped 41 years ago Alcohol: Negative Drugs: Negative - Constitutional Constitutional: Denies chills, Denies fever - EENT Comment: bilateral cataract surgery Eyes: denies blurred vision, denies pain Ears: bilateral: tinnitus, deny: decreased hearing Ears, nose, mouth and throat: Denies headache, Denies sore throat - Breasts Breasts: bilateral: as per HPI - Cardiovascular Comment: HTN - Respiratory Respiratory: Denies cough - Gastrointestinal Gastrointestinal: Denies abdominal pain, Denies diarrhea, Denies nausea, Denies vomiting - Genitourinary (Female) Genitourinary: Denies dysuria, Denies hematuria - Menstruation Menstruation: Reports postmenopausal - Musculoskeletal Musculoskeletal: Reports as per HPI - Integumentary Integumentary: Denies pruritus, Denies rash - Neurological Neurological: Reports numbness, Denies weakness - Psychiatric Psychiatric: Denies anxiety, Denies depression - Endocrine Endocrine: Denies fatigue - Hematologic/Lymphatic Comment: baby aspirin - Allergic/Immunologic Allergic/Immunologic: Reports as per HPI 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 History of Any Multi-Drug Resistant Organisms: None Reported Past Surgical History: Appendectomy, Bowel Resection, Breast Surgery Additional Past Surgical History / Comment(s): left breast lumpectomy Past Anesthesia/Blood Transfusion Reactions: No Reported Reaction Additional Past Anesthesia/Blood Transfusion Reaction / Comment(s): problem waking up after knee surgery Past Psychological History: No Psychological Hx Reported Smoking Status: Former smoker Past Alcohol Use History: None Reported Additional Past Alcohol Use History / Comment(s): quit smoking 1979 Past Drug Use History: None Reported - Past Family History Brother(s) Family Medical History: Diabetes Mellitus Mother Family Medical History: Cancer Additional Family Medical History / Comment(s): passed at 63 - liver cancer Medications and Allergies Home Medications Medication Instructions Recorded Confirmed Type Enalapril [Vasotec] 5 mg PO HS 07/29/18 12/15/21 History Levothyroxine Sodium [Synthroid] 75 mcg PO DAILY 07/29/18 12/15/21 History allopurinoL [Zyloprim] 300 mg PO HS 07/29/18 12/15/21 History metFORMIN HCL [Glucophage] 500 mg PO BID 07/29/18 12/15/21 History Aspirin EC [Ecotrin Low Dose] 81 mg PO DAILY 11/24/21 12/15/21 History Furosemide [Lasix] 20 mg PO DAILY 11/24/21 12/15/21 History Potassium Chloride [Klor-Con M10] 10 meq PO DAILY 11/24/21 12/15/21 History Ergocalciferol [Vitamin D2 (1250 1,250 mcg PO WEEKLY 12/15/21 12/15/21 History Mcg = 13724 Iu)] Allergies Allergy/AdvReac Type Severity Reaction Status Date / Time codeine AdvReac Nausea & Verified 12/15/21 09:08 Vomiting Objective - Vital Signs Vital signs: Vital Signs Temp 97.9 F 07/06/23 10:14 Pulse 92 07/06/23 10:14 Resp 16 07/06/23 10:14 BP 107/72 07/06/23 10:14 Pulse Ox 95 07/06/23 10:14 FiO2 Intake & Output 07/05/23 07/06/23 07/06/23 18:59 06:59 18:59 Weight 94.801 kg - Constitutional General appearance: Present: cooperative - EENT Eyes: Present: EOMI ENT: Present: hearing grossly normal - Neck Neck: Present: normal ROM - Respiratory Respiratory: bilateral: CTA - Cardiovascular Rhythm: regular Heart sounds: normal: S1, S2 - Gastrointestinal General gastrointestinal: Present: soft - Integumentary Integumentary: Present: normal turgor - Musculoskeletal Musculoskeletal: Present: gait normal - Psychiatric Psychiatric: Present: A&O x's 3, appropriate affect, intact judgment & insight - Additional findings Additional findings: Breast Exam: BRA: 48C inspection: bilateral grade 3 ptosis; postoperative and postradiation changes noted in left breast, post surgical right breast palpation: Right breast: Multi-positional exam fibrocystic well healed scar right breast, at the superior aspect of the scar there is approximately a 1 cm area of nodularity which was not present on her last examination no other dominant masses or nodules of concern Right axilla: No adenopathy of concern Left breast: Postoperative and postradiation changes, multiple positional exam no dominant masses or nodules of concern, on the superior aspect of the incision there does appear to be some increased nodularity at olive mid portion of the incision Left axilla: No adenopathy of concern Assessment and Plan Assessment: Impression: Stage 1A invasive ductal carcinoma right breast treated with lumpectomy and sentinel node biopsy, no evidence of recurrence 2021 Prior history of colon cancer Prior history of left breast cancer 1999 bilateral mammogram 11-13-22 BIRAD 2 Patient declined radiation/hormonal/chemotherapy New nodularity right chest wall near the incision site, nodularity near incision site left breast; ultrasound evaluation of these areas reviewed Plan: Bilateral mammogram in October 2023 with examination at that time Bilateral breast FNA of the palpable nodularity in both breast CC: Dr. eMdel
== END ==
LOC: WWCWWP 09:34
PROVIDERS: ATTEND Surgery
DX: N63.10 Unspecified lump in the right breast, unspecified quadrant (principal); N63.20 Unspecified lump in the left breast, unspecified quadrant; E11.9 Type 2 diabetes mellitus without complications; I10 Essential (primary) hypertension; E07.9 Disorder of thyroid, unspecified; Z85.3 Personal history of malignant neoplasm of breast; Z98.890 Other specified postprocedural states; Z85.038 Personal history of other malignant neoplasm of large intestine; Z86.73 Personal history of transient ischemic attack (TIA), and cerebral infarction without residual deficits; Z87.39 Personal history of other diseases of the musculoskeletal system and connective tissue; Z86.718 Personal history of other venous thrombosis and embolism; Z87.891 Personal history of nicotine dependence; Z88.5 Allergy status to narcotic agent; Z79.84 Long term (current) use of oral hypoglycemic drugs; Z79.82 Long term (current) use of aspirin; Z79.899 Other long term (current) drug therapy; Z79.890 Hormone replacement therapy

== ENCOUNTER → 2023-08-24 | Outpatient (CLI) | payer MEDICARE ==
[2023-08-24 11:00] VITALS: BP 106/68; PULSE 78; RESP 15; TEMP 97.7
== END ==
LOC: WWCWWP 10:14
PROVIDERS: ATTEND Surgery
DX: R92.8 Other abnormal and inconclusive findings on diagnostic imaging of breast (principal)

== ENCOUNTER → 2023-09-05 | Outpatient (CLI) | payer MEDICARE ==
--- NOTE | 2023-09-05 10:19 | P.PN ---
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 Surendra Tolliver regarding a right breast invasive ductal cancer. On a yearly mammogram the patient was noted to have a lesion in the right breast. This is a 0.9 x 0.7 cm lesion in the upper inner aspect. She did not feel any lumps masses or nodules of concern. Ultrasound-guided core biopsy on 7721 revealed a grade 2 invasive ductal carcinoma ER/ID positive and HER-2 negative. She has never had any surgery on the right breast. She was treated for a left breast cancer in 1999. She was treated with a lumpectomy and radiation therapy. She did not have any chemotherapy or hormone therapy. She also had colon cancer in 1986. This was treated with surgery only. She had a Cologaurd test which was (-) within the past two years as per the patient. The patient on underwent a right breast lumpectomy and sentinel node biopsy. 4 nodes were removed all negative for cancer, all margins were negative. She had a bilateral mammogram on 11-13-22 which was BIRAD 2. She is not complaining of any new lumps masses or nodules of concern in either breast. She did not have any chemotherapy, hormone therapy, radiation therapy. She is complaining of lumps in bilateral chest mendoza. That on the right seems to have increased in size more than that on the left. She has had a 15 pound intentional weight loss. on her examination on 06-22-23 nodularity was noted near incisions in both breast. An ultrasound was done on 07-02-23. The left breast with posttreatment changes results of ultrasound: Right breast, at the site of palpable abnormality in the right breast at 1:00 measures an 18 x 6 x 13 mm complex cystic lesion repeat ultrasound in 6 months recommended At the area of palpable abnormality in the left breast at 11:00 is a heterogeneous area with shadowing measuring 16 x 9 x 13 mm felt to correlate with patient's posttreatment changes seen on prior mammography On examination she was noted to have bilateral palpable changes and bilateral FNA recommended. Examination: Right breast: At the superior aspect of the incision there is a new area of nodularity Left breast: At the superior aspect of the incision posttreatment there is nodularity Procedure: Bilateral breast FNA The area of both breast were prepped using chlorhexidine A 22-gauge needle on a 10 cc syringe was used to obtain cells from the nodule in the right breast A 22-gauge needle on a 10 cc syringe was used to obtain cells from the left breast Both specimens were obtained and placed on the slides and sent to pathology The patient tolerated the procedure in stable condition Plan: Follow-up next week CC: Dr. Medel
[2023-09-05 10:54] VITALS: BP 104/69; PULSE 78; RESP 16; TEMP 98
[2023-09-06 02:45] LABS: Basophils # (A) 0.09 X 10*3/uL (0.00-0.10); Basophils % (A) 1.2 %; Eosinophils # (A) 0.46 X 10*3/uL (0.04-0.35); HCT 40.9 % (37.2-46.3); HGB 12.7 g/dL (12.0-15.0); Lymphocytes # (A) 1.78 X 10*3/uL (0.90-5.00); Lymphocytes % (A) 23.1 %; MCH 29.4 pg (27.0-32.0); MCHC 31.1 g/dL (32.0-37.0); MCV 94.7 FL (80.0-97.0); Mean Platelet Volume 11.6 FL (9.5-12.2); Monocytes # (A) 0.89 X 10*3/uL (0.20-1.00); Monocytes % (A) 11.5 %; NRBC Per 100 WBC 0 X 10*3/uL (0.00-0.01); Neutrophils # (A) 4.46 X 10*3/uL (1.80-7.70); Neutrophils % (A) 57.8 %; Platelet Count 261 X 10*3/uL (140-440); RBC 4.32 X 10*6/uL (4.10-5.20); RDW 14.5 % (11.5-14.5); WBC 7.71 X 10*3/uL (4.50-10.00)
[2023-09-06 03:42] LABS: Chol/HDL Ratio 4.04 Ratio; Uric Acid 5.7 mg/dL (2.9-7.7)
[2023-09-06 03:43] LABS: ALT 14 U/L (8-44); AST 20 U/L (13-35); Albumin 3.9 g/dL (3.8-4.9); Albumin/Globulin Ratio 1.95 Ratio (1.60-3.17); Alkaline Phosphatase 83 U/L (41-126); BUN/Creat Ratio 29.64 Ratio (12.00-20.00); Blood Urea Nitrogen 32.6 mg/dL (9.0-27.0); Calcium 9.5 mg/dL (8.7-10.3); Chloride 102 mmol/L (96-109); Glucose 91 mg/dL (70-110); LDL Cholesterol,Calculated 126.3 mg/dL (0.0-131.0); Potassium 4.7 mmol/L (3.5-5.5); Sodium 140 mmol/L (135-145); Total Bilirubin 0.4 mg/dL (0.3-1.2); Total Protein 5.9 g/dL (6.2-8.2)
== END ==
LOC: WWCWWP 09:09
PROVIDERS: ATTEND Surgery
DX: E55.9 Vitamin D deficiency, unspecified (principal); I10 Essential (primary) hypertension; M10.9 Gout, unspecified; R53.83 Other fatigue; Z79.899 Other long term (current) drug therapy; Z88.5 Allergy status to narcotic agent; Z87.891 Personal history of nicotine dependence
CPT/HCPCS: 80053; 80061; 82306; 84443; 84550; 85025

== ENCOUNTER → 2024-02-13 | Outpatient (CLI) | payer MEDICARE ==
--- NOTE | 2024-02-13 14:50 | MM ---
Reason for Exam: Hx of breast cancer, conservation therapy. Last mammogram was performed 1 year(s) and 3 month(s) ago. Patient History: Menarche at age 14. First Full-Term at age 21. Postmenopausal. Patient has history of breast feeding. Breast cancer, left, age 65. Colorectal cancer, age 51. Breast cancer, right, age 86. Previous chest radiation therapy. 02/21/2022, Lumpectomy on the Right side. 02/21/2022, Malignant MG pre op needle loc RT on the right side. 12/01/2021, Malignant US biopsy breast VAD RT on the right side. Core Biopsy on the Left side. 03/15/2001, Malignant Stereotactic Core Biopsy on the left side. Malignant Excisional Biopsy. Malignant Lumpectomy. Radiation Therapy, left. Prior Study Comparison: 06/22/2016 Bilateral Diagnostic Mammogram, [facility]. 11/06/2019 Bilateral Screening Mammogram, [facility]. 11/09/2021 Bilateral MG 3D screening mammo w/cad, [facility]. 11/21/2021 Right MG 3D work up w/cad RT, [facility]. 12/01/2021 Right MG diagnostic mammo RT wo CAD, [facility]. 11/13/2022 Bilateral MG 3D diag mammo w/cad JASON, [facility]. Tissue Density: There are scattered areas of fibroglandular density. Findings: Analyzed By CAD. The pattern is symmetrical. Vascular calcifications are present bilaterally. Surgical clips are within the right breast upper posterior position. Near the right breast biopsy site there are new grouped calcifications. Magnification views were obtained. Of these appear to be far medial on the right medial lateral view. Short-term follow-up in 6 months is recommended. Left breast:No suspicious groups of microcalcifications, spiculated or lobular masses, architectural distortion or other secondary signs of malignancy are mammographically apparent. Overall Assessment: Probably benign, BI-RAD 3 Management: Diagnostic Mammogram of the right breast in 6 months. A negative mammogram report should not preclude additional follow up of suspicious palpable abnormalities. Patient should continue monthly self breast exam. A clinical breast exam by your physician is recommended on an annual basis and results should be correlated with mammographic findings. Note on Tete scores and lifetime risk: 1. A Tete score greater than 3% is considered moderate risk. If this is the case, consider specialist referral to assess eligibility for a risk reducing agent. 2. If overall lifetime risk for the development of breast cancer is 20% or higher, the patient may qualify for future screening with alternating mammogram and breast MRI. [facility], , 02/13/2024 2:46 PM. Electronically signed and approved by: Surya Rahman D.O. Radiologis
== END | disposition home or self-care (01) ==
LOC: RADMAMWWP 13:30
PROVIDERS: ATTEND Surgery
DX: Z85.3 Personal history of malignant neoplasm of breast
CPT/HCPCS: 77062; 77066